=== PATIENT | male | born 1935 | race Caucasian/White ===

== ENCOUNTER 2021-10-06 09:23 | Inpatient (IN) | payer MEDICARE, SELFPAY ==
--- NOTE | ~2021-10-06 | XR_ITS ---
EXAMINATION: XR ANKLE, LEFT. XR FOOT, LEFT. CLINICAL INFORMATION: Pain after a fall COMPARISON: None TECHNIQUE: 3 views of the left ankle. 3 views of the left foot. FINDINGS: Bimalleolar soft tissue swelling. The ankle mortise is preserved. There is no acute fracture or dislocation of the ankle or foot. Dorsal soft tissue swelling of the foot. 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 Prominent heel spur. XR/XR ankle LT min 3V IMPRESSION: Soft tissue swelling. No acute fracture or dislocation. Heel spur.
--- NOTE | ~2021-10-06 | US_ITS ---
EXAMINATION: ULTRASOUND-GUIDED THORACENTESIS CLINICAL INFORMATION: Left pleural effusion. COMPARISON: Previous chest x-ray 10/06/2021. TECHNIQUE: Procedure and risks and benefits including bleeding, infection and pneumothorax were discussed with the patient and informed consent was obtained. The left posterior lateral chest was prepped and draped in the usual sterile fashion. The skin and soft tissues were anesthetized with 1% lidocaine plain. Using ultrasound guidance and a 4 Burkinan rapid centesis catheter, access to the left pleural effusion was obtained. 900 mL of clear yellow fluid was removed. Diagnostic specimen was sent as ordered by the requesting physician. FINDINGS: There is a moderate to large left pleural effusion. US/US thoracentesis IMPRESSION: Ultrasound-guided left thoracentesis.
--- NOTE | ~2021-10-06 | XR_ITS ---
EXAMINATION: XR CHEST CLINICAL INFORMATION: Weakness COMPARISON: None TECHNIQUE: Portable upright 10:35 AM view of the chest was obtained. FINDINGS: Limited portable baseline exam. Notable scoliosis convex left upper dorsal spine. Large pleural effusion left base. Element of CHF suspected. Heart size appears prominent. No other gross abnormality. XR/XR chest 1V IMPRESSION: CHF with a large left-sided pleural effusion. Recommend follow-up to ensure no underlying lesion. No previous.
--- NOTE | ~2021-10-06 | XR_ITS ---
EXAMINATION: XR CHEST CLINICAL INFORMATION: Post thoracentesis COMPARISON: Previous chest x-ray 10/06/2021 TECHNIQUE: Frontal view of the chest was obtained. FINDINGS: There is interval decrease in the left pleural effusion. There is a small remaining left pleural effusion post left thoracentesis. There is no pneumothorax. Cardiac and mediastinal contours are stable. There may be atelectasis left lower lobe adjacent to the effusion. The lungs are otherwise clear. There is a small right pleural effusion. There is scoliosis and degenerative changes of the spine. XR/XR chest 1V IMPRESSION: No pneumothorax post left thoracentesis.
--- NOTE | ~2021-10-06 | XR_ITS ---
EXAMINATION: XR ANKLE, LEFT. XR FOOT, LEFT. CLINICAL INFORMATION: Pain after a fall COMPARISON: None TECHNIQUE: 3 views of the left ankle. 3 views of the left foot. FINDINGS: Bimalleolar soft tissue swelling. The ankle mortise is preserved. There is no acute fracture or dislocation of the ankle or foot. Dorsal soft tissue swelling of the foot. 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 Prominent heel spur. XR/XR foot LT min 3V IMPRESSION: Soft tissue swelling. No acute fracture or dislocation. Heel spur.
--- NOTE | ~2021-10-06 | XR_ITS ---
EXAMINATION: XR CHEST CLINICAL INFORMATION: CHF evaluation. COMPARISON: 10/08/2021 chest. TECHNIQUE: Frontal view of the chest was obtained. FINDINGS: There is a persistent moderate-sized left pleural effusion without significant change. No pneumothorax. Mild pulmonary vascular prominence is seen. The heart and mediastinal structures are unremarkable. XR/XR chest 1V IMPRESSION: Persistent moderate left pleural effusion without significant change.
--- NOTE | ~2021-10-06 | CT_ITS ---
EXAMINATION: CT HEAD WITHOUT CONTRAST CLINICAL INFORMATION: Fall. Anticoagulated COMPARISON: None TECHNIQUE: Contiguous axial imaging was performed from the skull base to vertex without intravenous administration of contrast. This CT examination was performed using dose optimization techniques as appropriate, variously including the following: *Automated exposure control *Adjustment of mA and/or kV according to patient size (this includes techniques or standardized protocols for targeted exams where dose is matched to indication/reason for exam; i.e. extremities or head) *Use of iterative reconstruction technique DLP: mGy-cm FINDINGS: There is no evidence of acute intracranial hemorrhage or territorial infarction. No abnormal mass effect or midline shift is seen. Benitez to white matter differentiation is well preserved. No extra-axial fluid collections are identified. The ventricles are normal in size. There is no abnormal attenuation within the brain parenchyma. The osseous structures and soft tissues are normal. The mastoid air cells and visualized portions of the paranasal sinuses are notable for mild effusions particularly within right mastoid air cells. CT/CT head/brain wo con IMPRESSION: No acute intracranial pathology.
[2021-10-06 09:32] VITALS: BP 110/78; BP 129/62; PULSE 100; PULSE 92; RESP 16; O2SAT 96; O2SAT 98; BMI 25.4
--- NOTE | 2021-10-06 09:35 | ED_ITS ---
HPI - Altered Mental Status General Chief Complaint: Fall Stated Complaint: weakness, ams Time Seen by Provider: 10/06/21 09:25 Source: patient Mode of arrival: EMS Limitations: altered mental status (poor historian thinks it is 2005) History of Present Illness HPI narrative: 86 yo male from home states the thought someone was in his room last night because his daughter had people over so he slept in a chair. He then was confused as to where he was and tried to get up and slipped. He denies injury but notes his L heel has been bothering him for a while . He does not know the presidents name and he thinks it is 2005. He denies any other complaints. Notes his LE are swollen for 2 weeks - on lasix 20mg daily. Family is not here and I do not have a contact number for his daughter whom he lives with. complaint: confusion and other (fall) Onset (ago): unknown (slipped out of bed this AM unsure about baseline mentation - EMS notes increasing delusions) Timing confirmed by: family member Severity: moderate Consistency of symptoms: waxing and waning Context: other (fall out of bed) Associated symptoms: other (L heel pain) Related Data Home Medications Medication Instructions Recorded Confirmed acetaminophen 325 mg tablet 650 mg PO Q4H PRN 10/06/21 10/06/21 apixaban 2.5 mg tablet (Eliquis) 1 tab PO BID 10/06/21 10/06/21 ascorbic acid (vitamin C) 500 mg 500 mg PO DAILY 10/06/21 10/06/21 tablet cholecalciferol (vitamin D3) 25 25 mcg PO DAILY 10/06/21 10/06/21 mcg (1,000 unit) tablet (Vitamin D3) ferrous sulfate 325 mg (65 mg 325 mg PO DAILY 10/06/21 10/06/21 iron) tablet finasteride 5 mg tablet 5 mg PO BEDTIME 10/06/21 10/06/21 furosemide 20 mg tablet 20 mg PO DAILY 10/06/21 10/06/21 gabapentin 400 mg capsule 400 mg PO BID 10/06/21 10/06/21 lisinopril 20 mg tablet 20 mg PO DAILY 10/06/21 10/06/21 metoprolol tartrate 25 mg tablet 12.5 mg PO BID 10/06/21 10/06/21 multivitamin 1 tab PO DAILY 10/06/21 10/06/21 pravastatin 20 mg tablet 20 mg PO BEDTIME 10/06/21 10/06/21 zinc 50 mg tablet 50 mg PO DAILY 10/06/21 10/06/21 Allergies Allergy/AdvReac Type Severity Reaction Status Date / Time No Known Allergies Allergy Verified 10/06/21 09:32 Review of Systems Review of Systems: Constitutional : No Fever, No Chills ENT/Mouth : No Ear Pain, No Hoarseness, No sore throat Eyes: No Eye Pain, No Swelling, No Redness, No Foreign Body Cardiovascular : No Chest Pain, No SOB Respiratory : No Cough, No Dyspnea Gastrointestinal : No Nausea, No Vomiting, No Diarrhea, No abdominal Pain Genitourinary : No Dysuria, No Hematuria Musculoskeletal : positive joint pain, No Myalgias, No Joint Swelling Skin : No Skin lacerations, pos skin lesion Neuro : No Weakness, No Numbness, No Loss of Consciousness, No Dizziness, No Headache Psych : No Anxiety/Panic, No Depression, pos hallucinations - visual Heme/Lymph: no easy bruising, no Lymphadenopathy Endocrine : No Polyuria, No Polydipsia All other systems reviewed and are negative [facility] Past Medical History Source: old records reviewed (came with med list) Medical History Acute on chronic diastolic CHF (congestive heart failure) Afib Aortic stenosis BPH (benign prostatic hyperplasia) Cognitive impairment GIB (gastrointestinal bleeding) HLD (hyperlipidemia) HTN (hypertension) Peripheral edema Prostate cancer Right leg DVT Family History Family History Other No family history of coronary artery disease Social History Social History Patient Tobacco Use Status: Never used Tobacco Advance Directives: Yes Advance Directives Information Provided: No Advance Directives on File: No Physical Exam ED Vital Signs: Vital Signs - 24 hr 10/06/21 09:32 10/06/21 11:00 10/06/21 12:00 Temperature 97.7 F Pulse Rate 92 86 90 Respiratory Rate 16 19 14 Blood Pressure 110/78 103/62 110/76 Pulse Oximetry 96 95 94 BMI result Body Mass Index 25.4 Appearance: Alert. Oriented to self and place. No acute distress. I don't why I'm here, I thought someone was in my room last night but I was wrong. Eyes: Pupils equal, round and reactive to light. ENT: Pharynx normal. Neck: Normal inspection. Neck supple. CVS: irregular heart rate and rhythm. diminished heart sounds, Pulses normal. Respiratory: No respiratory distress. Breath sounds diminished, rales noted, poor airflow L side. no retractions. Abdomen: Soft and nontender. Skin: Skin warm and dry. Normal skin color. L heel shallow ulcer but no drainage and no surrounding erythema it is ttp Extremities: bilateral 3+ pitting edema to thighs Neuro: Oriented X 2. No motor deficit. No sensory deficit. Course Course Course Narrative: review of notes from [facility] - proteus from penile infection, dCHF, aortic stenosis, GIB - decreased eliquis, chronic ulcers of sacrum/heels and he was confused at that time as well May 2021 hemoglobin 8.3 on DC Looks like trend is in 8s call to daughter Mar 1034am [phone] this number is actually the patient's phone Cr 1.07 april 2021 BNP markedly high 9783 in past at [facility], trop 0.11 has no chest pain lactic acidosis likely elevated due to CKD and not infection or severe sepsis, has signs of volume overload - IVF held, being given IV lasix delusions started 5 days ago - patient refused hospital, confusion and memory issues are not new per family but have worsened Mar [phone] Joe [phone] possible UTI - has no symptoms will cover with ceftriaxone, has no WBC count afebrile, patient's lactic acidosis is due to CKD and not infection or severe sepsis. He is here with fluid overload and IVF are not indicated. MDM - Altered Mental Status MDM Narrative Medical decision making narrative: 86 yo male with hx of LE edema, afib on eliquis, BPH, L heel ulcer comes in after having delusions that someone was in his room so he slept in a chair. He became confused and tried to get up - slipped out and denies injury. I do not have much information in our EMR so history is off of his med list. He is alert to himself and place. At this time CT head for ICH, labs - tox labs, CXR/UA for infection. xrays of L heel/foot. I do not have a number for his daughter who he lives with and he doesn't know the number either. Reaching out to [facility] and [facility] to see if they have records on him. Dispo per results and findings. Lab Data Result diagrams: 10/06/21 10:06 10/06/21 10:06 Labs: Lab Results 10/06/21 10/06/21 10/06/21 Range/Units 10:04 10:06 10:06 WBC 5.7 (4.8-10.8) X10*3/uL RBC 3.21 L (4.60-5.80) X10*6/uL Hgb 9.6 L (14.0-18.0) g/dl Hct 30.9 L (42.0-52.0) % MCV 96.3 (80.0-98.0) fL MCH 29.9 (27.0-33.0) pg MCHC 31.1 (31.0-36.0) g/dl RDW 16.7 H (11.0-16.0) % Plt Count 175 (160-400) X10*3/uL MPV 9.7 (9.4-12.4) fL Immature Gran % (Auto) 0.4 (0.0-0.4) % Neut % (Auto) 79.9 H (45-73) % Lymph % (Auto) 9.9 L (20-40) % [place] % (Auto) 8.5 (2-11) % Eos % (Auto) 0.9 (0-4) % Baso % (Auto) 0.4 (0-2) % Lymph # (Auto) 0.6 L (1.2-4.9) X10*3/uL [place] # (Auto) 0.5 (0.1-1.2) X10*3/uL Eos # (Auto) 0.1 (0.0-0.4) X10*3/uL Baso # (Auto) 0.0 (0.0-0.2) X10*3/uL Abs Immat Gran (auto) 0.02 (0.00-0.03) X10*3/uL Absolute Neuts (auto) 4.5 (2.0-8.3) x10*3/uL Absolute Nucleated RBC 0.000 (0.0-0.012) X10*3/uL Nucleated RBC % (auto) 0.0 (0.0-0.2) /100WBC PT (9.9-13.0) SEC INR (0.9-1.1) APTT (24.1-38.0) SEC Sodium 144 (135-145) mmol/L Potassium 4.8 (3.3-5.1) mmol/L Chloride 107 (96-108) mmol/L Carbon Dioxide 25 (22-29) mmol/L Anion Gap 17 (12-20) BUN 33 H (9-16) mg/dL Creatinine 1.58 H (0.5-1.4) mg/dL Estim Creat Clear Calc 33.6 Estimated GFR 42 Random Glucose 84 (60-115) mg/dL Lactic Acid (0.5-2.0) mmol/L Calcium 9.3 (8.4-10.2) mg/dL Magnesium 2.5 (1.6-2.6) mg/dL Total Bilirubin 0.6 (0.0-1.0) mg/dL Direct Bilirubin 0.3 (0.0-0.5) mg/dL AST 35 (5-37) U/L ALT 28 (0-40) U/L Alkaline Phosphatase 70 (39-117) U/L Ammonia (13-55) umol/L Total Creatine Kinase 190 H (38-174) U/L Troponin I High Sens (<3.5-35.0) ng/L C-Reactive Protein 5.92 H (< or = 0.50) mg/dL B-Natriuretic Peptide (<100) pg/mL Total Protein 6.6 (6.5-8.0) g/dL Albumin 3.6 (3.5-5.0) g/dL Lipase 33 (8-78) U/L TSH (0.32-4.0) uIU/mL Urine Color Urine Appearance Urine pH (5.0-8.0) Ur Specific [place] (1.005-1.025) Urine Protein (NEG-TRACE) MG/DL Urine Glucose (UA) (NEG) MG/DL Urine Ketones (NEG) MG/DL Urine Blood (NEG) Urine Nitrite (NEG) Ur Leukocyte Esterase (NEG) Urine RBC (0) /HPF Urine WBC (0-4) /HPF Ur Squamous Epith Cells /LPF Urine Bacteria /LPF Urine Mucus /LPF Salicylates (15-30) mg/dL Acetaminophen (<30) mcg/mL COVID-19 (MARIANO) Negative (Negative) COVID-19 Clin Com See Note 10/06/21 10/06/21 10/06/21 Range/Units 10:06 10:06 10:06 WBC (4.8-10.8) X10*3/uL RBC (4.60-5.80) X10*6/uL Hgb (14.0-18.0) g/dl Hct (42.0-52.0) % MCV (80.0-98.0) fL MCH (27.0-33.0) pg MCHC (31.0-36.0) g/dl RDW (11.0-16.0) % Plt Count (160-400) X10*3/uL MPV (9.4-12.4) fL Immature Gran % (Auto) (0.0-0.4) % Neut % (Auto) (45-73) % Lymph % (Auto) (20-40) % [place] % (Auto) (2-11) % Eos % (Auto) (0-4) % Baso % (Auto) (0-2) % Lymph # (Auto) (1.2-4.9) X10*3/uL [place] # (Auto) (0.1-1.2) X10*3/uL Eos # (Auto) (0.0-0.4) X10*3/uL Baso # (Auto) (0.0-0.2) X10*3/uL Abs Immat Gran (auto) (0.00-0.03) X10*3/uL Absolute Neuts (auto) (2.0-8.3) x10*3/uL Absolute Nucleated RBC (0.0-0.012) X10*3/uL Nucleated RBC % (auto) (0.0-0.2) /100WBC PT 19.1 H (9.9-13.0) SEC INR 1.7 H (0.9-1.1) APTT 33.7 (24.1-38.0) SEC Sodium (135-145) mmol/L Potassium (3.3-5.1) mmol/L Chloride (96-108) mmol/L Carbon Dioxide (22-29) mmol/L Anion Gap (12-20) BUN (9-16) mg/dL Creatinine (0.5-1.4) mg/dL Estim Creat Clear Calc Estimated GFR Random Glucose (60-115) mg/dL Lactic Acid 2.1 H* (0.5-2.0) mmol/L Calcium (8.4-10.2) mg/dL Magnesium (1.6-2.6) mg/dL Total Bilirubin (0.0-1.0) mg/dL Direct Bilirubin (0.0-0.5) mg/dL AST (5-37) U/L ALT (0-40) U/L Alkaline Phosphatase (39-117) U/L Ammonia (13-55) umol/L Total Creatine Kinase (38-174) U/L Troponin I High Sens 85.5 H (<3.5-35.0) ng/L C-Reactive Protein (< or = 0.50) mg/dL B-Natriuretic Peptide 1788 H (<100) pg/mL Total Protein (6.5-8.0) g/dL Albumin (3.5-5.0) g/dL Lipase (8-78) U/L TSH (0.32-4.0) uIU/mL Urine Color Urine Appearance Urine pH (5.0-8.0) Ur Specific [place] (1.005-1.025) Urine Protein (NEG-TRACE) MG/DL Urine Glucose (UA) (NEG) MG/DL Urine Ketones (NEG) MG/DL Urine Blood (NEG) Urine Nitrite (NEG) Ur Leukocyte Esterase (NEG) Urine RBC (0) /HPF Urine WBC (0-4) /HPF Ur Squamous Epith Cells /LPF Urine Bacteria /LPF Urine Mucus /LPF Salicylates (15-30) mg/dL Acetaminophen (<30) mcg/mL COVID-19 (MARIANO) (Negative) COVID-19 Clin Com 10/06/21 10/06/21 10/06/21 Range/Units 10:06 10:06 12:18 WBC (4.8-10.8) X10*3/uL RBC (4.60-5.80) X10*6/uL Hgb (14.0-18.0) g/dl Hct (42.0-52.0) % MCV (80.0-98.0) fL MCH (27.0-33.0) pg MCHC (31.0-36.0) g/dl RDW (11.0-16.0) % Plt Count (160-400) X10*3/uL MPV (9.4-12.4) fL Immature Gran % (Auto) (0.0-0.4) % Neut % (Auto) (45-73) % Lymph % (Auto) (20-40) % [place] % (Auto) (2-11) % Eos % (Auto) (0-4) % Baso % (Auto) (0-2) % Lymph # (Auto) (1.2-4.9) X10*3/uL [place] # (Auto) (0.1-1.2) X10*3/uL Eos # (Auto) (0.0-0.4) X10*3/uL Baso # (Auto) (0.0-0.2) X10*3/uL Abs Immat Gran (auto) (0.00-0.03) X10*3/uL Absolute Neuts (auto) (2.0-8.3) x10*3/uL Absolute Nucleated RBC (0.0-0.012) X10*3/uL Nucleated RBC % (auto) (0.0-0.2) /100WBC PT (9.9-13.0) SEC INR (0.9-1.1) APTT (24.1-38.0) SEC Sodium (135-145) mmol/L Potassium (3.3-5.1) mmol/L Chloride (96-108) mmol/L Carbon Dioxide (22-29) mmol/L Anion Gap (12-20) BUN (9-16) mg/dL Creatinine (0.5-1.4) mg/dL Estim Creat Clear Calc Estimated GFR Random Glucose (60-115) mg/dL Lactic Acid (0.5-2.0) mmol/L Calcium (8.4-10.2) mg/dL Magnesium (1.6-2.6) mg/dL Total Bilirubin (0.0-1.0) mg/dL Direct Bilirubin (0.0-0.5) mg/dL AST (5-37) U/L ALT (0-40) U/L Alkaline Phosphatase (39-117) U/L Ammonia 21 (13-55) umol/L Total Creatine Kinase (38-174) U/L Troponin I High Sens (<3.5-35.0) ng/L C-Reactive Protein (< or = 0.50) mg/dL B-Natriuretic Peptide (<100) pg/mL Total Protein (6.5-8.0) g/dL Albumin (3.5-5.0) g/dL Lipase (8-78) U/L TSH 1.33 (0.32-4.0) uIU/mL Urine Color YELLOW Urine Appearance HAZY Urine pH 6.0 (5.0-8.0) Ur Specific [place] 1.010 (1.005-1.025) Urine Protein NEG (NEG-TRACE) MG/DL Urine Glucose (UA) NEG (NEG) MG/DL Urine Ketones NEG (NEG) MG/DL Urine Blood TRACE (NEG) Urine Nitrite NEG (NEG) Ur Leukocyte Esterase 1+ H (NEG) Urine RBC 5-9 H (0) /HPF Urine WBC 10-14 H (0-4) /HPF Ur Squamous Epith Cells 1+ /LPF Urine Bacteria TRACE /LPF Urine Mucus TRACE /LPF Salicylates < 5.0 L (15-30) mg/dL Acetaminophen < 1 (<30) mcg/mL COVID-19 (MARIANO) (Negative) COVID-19 Clin Com ECG Data ECG #1: Attestation: I personally reviewed and interpreted this ECG as follows: ECG interpretation date: 10/06/21 ECG interpretation time: 09:52 Interpretation: Rate: 91 Rhythm: NSR with PACs Dana: left Normal P waves. Normal JEAN. Normal QRS complex. ST T wave : nonspecific but no SIDDHARTH qTC: normal prior studies: no acute ischemia The study has been interpreted contemporaneously by me. Discharge Plan Discharge Clinical Impression: Confusion, Congestive heart failure, CKD (chronic kidney disease), Acidosis, lactic, Pleural effusion Heel ulcer Qualifiers: Laterality: left Non-pressure ulcer stage: unspecified non-pressure ulcer stage Qualified Code(s): L97.429 - Non-pressure chronic ulcer of left heel and midfoot with unspecified severity Patient Disposition: Admitted As Inpatient
[2021-10-06 10:20] LABS: MANUAL DIFF FLAG NO
[2021-10-06 10:21] LABS: Basophils Percent Auto 0.4 % (0-2); Eosinophils Absolute Auto 0.1 X10*3/uL (0.0-0.4); Eosinophils Percent Auto 0.9 % (0-4); Hematocrit 30.9 % (42.0-52.0); Hemoglobin 9.6 g/dl (14.0-18.0); Imm Gran Abs Auto 0.02 X10*3/uL (0.00-0.03); Imm Gran Pct Auto 0.4 % (0.0-0.4); Lymphocytes Absolute Auto 0.6 X10*3/uL (1.2-4.9); Lymphocytes Percent Auto 9.9 % (20-40); Mean Corpuscular HGB Conc 31.1 g/dl (31.0-36.0); Mean Corpuscular Hemoglobin 29.9 pg (27.0-33.0); Mean Corpuscular Volume 96.3 fL (80.0-98.0); Mean Platelet Volume 9.7 fL (9.4-12.4); Monocytes Absolute Auto 0.5 X10*3/uL (0.1-1.2); Monocytes Percent Auto 8.5 % (2-11); Neutrophils Absolute Auto 4.5 x10*3/uL (2.0-8.3); Neutrophils Percent Auto 79.9 % (45-73); Platelet Count 175 X10*3/uL (160-400); Red Blood Count 3.21 X10*6/uL (4.60-5.80); Red Cell Distribution Width 16.7 % (11.0-16.0); White Blood Count 5.7 X10*3/uL (4.8-10.8)
[2021-10-06 10:26] LABS: INTERNATIONAL NORM RATIO 1.7 (0.9-1.1); Prothrombin Time 19.1 SEC (9.9-13.0)
[2021-10-06 10:27] LABS: Ammonia 21 umol/L (13-55)
[2021-10-06 10:29] LABS: Partial Thromboplastin Time 33.7 SEC (24.1-38.0)
[2021-10-06 10:32] LABS: COVID-19 Test Negative (Negative); IDNOW Serial# 16C4AD1C
[2021-10-06 10:37] LABS: Alanine Aminotransferase 28 U/L (0-40); Albumin Level 3.6 g/dL (3.5-5.0); Alkaline Phosphatase 70 U/L (39-117); Anion Gap 17 (12-20); Aspartate Amino Transferase 35 U/L (5-37); Bilirubin Direct 0.3 mg/dL (0.0-0.5); Bilirubin Total 0.6 mg/dL (0.0-1.0); Blood Urea Nitrogen 33 mg/dL (9-16); C Reactive Protein 5.92 mg/dL (< or = 0.50); Calcium 9.3 mg/dL (8.4-10.2); Carbon Dioxide 25 mmol/L (22-29); Chloride 107 mmol/L (96-108); Creatinine Clr Calc Pharmacy 33.6; Estimated Glomerular Filt Rate 42; Glucose Random 84 mg/dL (60-115); Lipase 33 U/L (8-78); Magnesium 2.5 mg/dL (1.6-2.6); Potassium 4.8 mmol/L (3.3-5.1); Sodium 144 mmol/L (135-145); Total Protein 6.6 g/dL (6.5-8.0)
[2021-10-06 10:38] LABS: Lactic Acid 2.1 mmol/L (0.5-2.0)
[2021-10-06 10:40] LABS: Acetaminophen LAB < 1 mcg/mL (<30); Salicylate < 5.0 mg/dL (15-30)
[2021-10-06 10:41] LABS: B Type Natriuretic Peptide 1788 pg/mL (<100); Troponin-I High Sensitivity 85.5 ng/L (<3.5-35.0)
[2021-10-06 10:56] LABS: TSH reflex Free T4 1.33 uIU/mL (0.32-4.0)
[2021-10-06 11:00] VITALS: BP 103/62; PULSE 86; RESP 19; TEMP 36.5; O2SAT 95
[2021-10-06] MEDS: Furosemide 40 MG/4 ML VIAL IVPUSH ×2 (11:00→17:48)
--- NOTE | 2021-10-06 11:28 | PC.NURSE ---
Call from patient's who is at [facility], received phone number for daughter who patient lives with. Mar [phone]
--- NOTE | 2021-10-06 11:55 | PHA.MEDREC ---
MED REC COMPLETE, NO ISSUES Pharmacy Consult ? Medication Reconciliation Pharmacy has completed the medication reconciliation.
[2021-10-06 12:00] VITALS: BP 110/76; PULSE 90; RESP 14; O2SAT 94
[2021-10-06 12:18] LABS: Reflex Lactate? Lactic Acid Added
[2021-10-06 12:24] LABS: Appearance Urine HAZY; Color Urine YELLOW; Glucose Urine UA NEG (NEG); Leukocyte Esterase Urine 1+ (NEG); Nitrite Urine NEG (NEG); UACC Culture Trigger YES; Urine Blood TRACE (NEG); Urine Ketones NEG (NEG); Urine Protein NEG (NEG-TRACE)
[2021-10-06 12:31] LABS: Bacteria Urine TRACE /LPF; Mucus Urine TRACE /LPF; Squamous Epithelial Cell Urine 1+ /LPF
--- NOTE | 2021-10-06 12:37 | P.HPHOSP_ITS ---
History of Present Illness Date of Service: 10/06/21 Chief Complaint: fall 86M presented with fall. patient lives with duaghter and son in law, ambulates with walker, has dementia, but is fairly oriented with some short term memory loss. apparently, patient had a visual hallucination of someone in his bed, so he slept in his chair, in morning he tried to get up and fell down, so they brought him to hospital. patient states he was not wearing his glasses. he denies sob, chest pain, fever, chills, injury. he reports now that he feels back to baseline, but does note worsening bilateral lower extremity swelling. patient has known severe , but he and is family not aware. in ED elevated BNP, Cxr with left effusion. Review of Systems Review of Systems: Constitutional: Denies fever, denies Chills Eyes: denies blurry vision ENT: denies sore throat CVS: denies chest pain Respiratory: Denies dyspnea GI: no abdominal pain : denies dysuria MSK: denies neck pain Skin: denies rash Neuro: denies specific motor weakness Psych: denies suicidal ideation Endocrine: denies heat/cold intolerance Hematologic: denies easy bleeding Allergy: denies hives PMF Medical History Acute on chronic diastolic CHF (congestive heart failure) Afib Aortic stenosis BPH (benign prostatic hyperplasia) Cognitive impairment GIB (gastrointestinal bleeding) HLD (hyperlipidemia) HTN (hypertension) Peripheral edema Prostate cancer Right leg DVT Family History Other No family history of coronary artery disease Social History Patient Tobacco Use Status: Never used Tobacco Advance Directives: Yes Advance Directives Information Provided: No Advance Directives on File: No Meds Allergies Allergy/AdvReac Type Severity Reaction Status Date / Time No Known Allergies Allergy Verified 10/06/21 09:32 Active Medications: Current Medications Acetaminophen (Acetaminophen 325 Mg Tablet) 650 mg PO Q6H PRN PRN Reason: Pain, Mild (Pain Scale 1-3) Ascorbic Acid (Ascorbic Acid 500 Mg Tablet) 500 mg PO DAILY [facility] Ferrous Sulfate (Ferrous Sulfate 324 Mg Tablet.) 324 mg PO DAILY [facility] Finasteride (Finasteride 5 Mg Tablet) 5 mg PO BEDTIME [facility] Furosemide (Furosemide 40 Mg/4 Ml Vial) 40 mg IVPUSH BID@0900,1800 [facility]; Protocol Gabapentin (Gabapentin 400 Mg Capsule) 400 mg PO BID [facility] Heparin Sodium (Porcine) (Heparin Sodium,Porcine 5,000 Unit/Ml Vial) 5,000 unit SUBCUT Q12H [facility] Lisinopril (Lisinopril 20 Mg Tablet) 20 mg PO DAILY [facility]; Protocol Metoprolol Tartrate (Metoprolol Tartrate 12.5 Mg Halftab) 12.5 mg PO BID [facility]; Protocol Multivitamins/Vitamin C (Multivitamin Tablet) 1 tab PO DAILY [facility] Pharmacy Consult (Consult Rx Perform Med Rec) 1 each MISCELLANE ONCE PRN PRN Reason: Consult order Pravastatin Sodium (Pravastatin Sodium 20 Mg Tablet) 20 mg PO BEDTIME [facility] Sodium Chloride (0.9 % Sodium Chloride Flush 3 Ml Syringe) 3 ml IVFLUSH QSHIFT [facility] Vitamin D (Cholecalciferol (Vitamin D3) 25 Mcg Tablet) 25 mcg PO DAILY [facility] Zinc Sulfate (Zinc Sulfate 220 Mg Capsule) 220 mg PO DAILY [facility] Home Medications Medication Instructions Recorded Confirmed Last Taken Type acetaminophen 325 mg tablet 650 mg PO Q4H PRN 10/06/21 10/06/21 Unknown History apixaban 2.5 mg tablet (Eliquis) 1 tab PO BID 10/06/21 10/06/21 10/06/21 History ascorbic acid (vitamin C) 500 mg 500 mg PO DAILY 10/06/21 10/06/21 10/06/21 History tablet cholecalciferol (vitamin D3) 25 25 mcg PO DAILY 10/06/21 10/06/21 10/06/21 History mcg (1,000 unit) tablet (Vitamin D3) ferrous sulfate 325 mg (65 mg 325 mg PO DAILY 10/06/21 10/06/21 10/06/21 History iron) tablet finasteride 5 mg tablet 5 mg PO BEDTIME 10/06/21 10/06/21 10/05/21 History furosemide 20 mg tablet 20 mg PO DAILY 10/06/21 10/06/21 10/06/21 History gabapentin 400 mg capsule 400 mg PO BID 10/06/21 10/06/21 10/06/21 History lisinopril 20 mg tablet 20 mg PO DAILY 10/06/21 10/06/21 10/06/21 History metoprolol tartrate 25 mg tablet 12.5 mg PO BID 10/06/21 10/06/21 10/06/21 History multivitamin 1 tab PO DAILY 10/06/21 10/06/21 10/06/21 History pravastatin 20 mg tablet 20 mg PO BEDTIME 10/06/21 10/06/21 10/05/21 History zinc 50 mg tablet 50 mg PO DAILY 10/06/21 10/06/21 10/06/21 History Physical Exam Vital Signs and Narrative: Vital Signs: Last Vital Signs Temp 97.7 F 10/06/21 11:00 Pulse 90 10/06/21 12:00 Resp 14 10/06/21 12:00 BP 110/76 10/06/21 12:00 Pulse Ox 94 10/06/21 12:00 BMI result Body Mass Index 25.4 General: no acute distress HEENT: atraumatic Neck: normal to visual inspection CVS: S1, S2, RRR, murmur Resp: dminshed left side Chest: non tender GI: soft, non tender, non distended : no CVA tenderness Skin: no rashes Extremities: 3+ edema Neuro: Oriented X3 (did not know year initially, but was able to repeat correct year once told), grossly intact Psych: cooperative Results Labs CBC and Chem 7: 10/06/21 10:06 10/06/21 10:06 Labs: Laboratory Results - last 24 hr 10/06/21 10/06/21 10/06/21 10:04 10:06 10:06 MCV 96.3 MCH 29.9 MCHC 31.1 RDW 16.7 H Plt Count 175 MPV 9.7 Immature Gran % (Auto) 0.4 Neut % (Auto) 79.9 H Lymph % (Auto) 9.9 L [place] % (Auto) 8.5 Eos % (Auto) 0.9 Baso % (Auto) 0.4 Lymph # (Auto) 0.6 L [place] # (Auto) 0.5 Eos # (Auto) 0.1 Baso # (Auto) 0.0 Abs Immat Gran (auto) 0.02 Absolute Neuts (auto) 4.5 Absolute Nucleated RBC 0.000 Nucleated RBC % (auto) 0.0 PT INR APTT Anion Gap 17 Estim Creat Clear Calc 33.6 Estimated GFR 42 Random Glucose 84 Lactic Acid Calcium 9.3 Magnesium 2.5 Total Bilirubin 0.6 Direct Bilirubin 0.3 AST 35 ALT 28 Alkaline Phosphatase 70 Ammonia Total Creatine Kinase 190 H Troponin I High Sens C-Reactive Protein 5.92 H B-Natriuretic Peptide Total Protein 6.6 Albumin 3.6 Lipase 33 TSH Urine Color Urine Appearance Urine pH Ur Specific [place] Urine Protein Urine Glucose (UA) Urine Ketones Urine Blood Urine Nitrite Ur Leukocyte Esterase Urine RBC Urine WBC Ur Squamous Epith Cells Urine Bacteria Urine Mucus Salicylates Acetaminophen COVID-19 (MARIANO) Negative COVID-19 Clin Com See Note 10/06/21 10/06/21 10/06/21 10:06 10:06 10:06 MCV MCH MCHC RDW Plt Count MPV Immature Gran % (Auto) Neut % (Auto) Lymph % (Auto) [place] % (Auto) Eos % (Auto) Baso % (Auto) Lymph # (Auto) [place] # (Auto) Eos # (Auto) Baso # (Auto) Abs Immat Gran (auto) Absolute Neuts (auto) Absolute Nucleated RBC Nucleated RBC % (auto) PT 19.1 H INR 1.7 H APTT 33.7 Anion Gap Estim Creat Clear Calc Estimated GFR Random Glucose Lactic Acid 2.1 H* Calcium Magnesium Total Bilirubin Direct Bilirubin AST ALT Alkaline Phosphatase Ammonia Total Creatine Kinase Troponin I High Sens 85.5 H C-Reactive Protein B-Natriuretic Peptide 1788 H Total Protein Albumin Lipase TSH Urine Color Urine Appearance Urine pH Ur Specific [place] Urine Protein Urine Glucose (UA) Urine Ketones Urine Blood Urine Nitrite Ur Leukocyte Esterase Urine RBC Urine WBC Ur Squamous Epith Cells Urine Bacteria Urine Mucus Salicylates Acetaminophen COVID-19 (MARIANO) COVID-19 Clin Com 10/06/21 10/06/21 10/06/21 10:06 10:06 12:18 MCV MCH MCHC RDW Plt Count MPV Immature Gran % (Auto) Neut % (Auto) Lymph % (Auto) [place] % (Auto) Eos % (Auto) Baso % (Auto) Lymph # (Auto) [place] # (Auto) Eos # (Auto) Baso # (Auto) Abs Immat Gran (auto) Absolute Neuts (auto) Absolute Nucleated RBC Nucleated RBC % (auto) PT INR APTT Anion Gap Estim Creat Clear Calc Estimated GFR Random Glucose Lactic Acid Calcium Magnesium Total Bilirubin Direct Bilirubin AST ALT Alkaline Phosphatase Ammonia 21 Total Creatine Kinase Troponin I High Sens C-Reactive Protein B-Natriuretic Peptide Total Protein Albumin Lipase TSH 1.33 Urine Color YELLOW Urine Appearance HAZY Urine pH 6.0 Ur Specific [place] 1.010 Urine Protein NEG Urine Glucose (UA) NEG Urine Ketones NEG Urine Blood TRACE Urine Nitrite NEG Ur Leukocyte Esterase 1+ H Urine RBC 5-9 H Urine WBC 10-14 H Ur Squamous Epith Cells 1+ Urine Bacteria TRACE Urine Mucus TRACE Salicylates < 5.0 L Acetaminophen < 1 COVID-19 (MARIANO) COVID-19 Clin Com Imaging Radiologist's Impressions: Impressions Ankle X-Ray 10/06/21 10:42 IMPRESSION: Soft tissue swelling. No acute fracture or dislocation. Heel spur. Chest X-Ray 10/06/21 10:42 IMPRESSION: CHF with a large left-sided pleural effusion. Recommend follow-up to ensure no underlying lesion. No previous. Foot X-Ray 10/06/21 10:42 IMPRESSION: Soft tissue swelling. No acute fracture or dislocation. Heel spur. Head CT 10/06/21 10:55 IMPRESSION: No acute intracranial pathology. Assessment and Plan (1) Acute on chronic diastolic CHF (congestive heart failure): Status: Acute Plan 86M presented with fall, hallucinations, found to have chf, positive UA fall likely mechanical related to edema PT eval hallucinations 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) with hallucinations due to decreased sensorium (not wearing glasses) use glasses when awake avoid sedatives acute on chronic diastolic chf with severe iv lasix monitor lytes cardio eval echo large left pleuarl effusion likely due to chf plan for thoracentesis 10/08/21 (hold eliquis) positive UA possible uti, will treat with rocpehin, follow up cultures paroxysmal afib eliquis on hold for thoracentesis lopressor history of right leg DVT hodling eliquis CKD III stable HTN lisinopril BPH proscar full code patient with chf requiring iv diuresis, high risk due to age, frailty, expect atleast 2 midnights in hospital Quality Stroke Does the patient have a stroke diagnosis?: No VTE Prior VTE?: Yes VTE Risk Level:: Medical - moderate - high VTE Device Contraindication: Treatment Not Indicated VTE Drug Contraindication: N/A - Med Ordered
[2021-10-06 13:02] LABS: ~Lactic Acid-LAB USE ONLY 1.1 mmol/L (0.5-2.0)
[2021-10-06] MEDS: cefTRIAXone sodium 1 GM in 0.9 % Sodium Chloride 50 ML IV (13:58)
--- NOTE | 2021-10-06 15:02 | MHC.CM.PN ---
Met with patient in regards to discharge planning. Patient currently lives with his and daughter, ambulates with a walker and is active with [facility]. Patient's is currently at short term rehab at [facility]. PCP verified. Copy of HCP requested from [facility]. Patient received 3 Covid vaccines but doesn't remember the brand or dates. IMM explained and signed. Anticipate patient will return home with [facility] via [employer]. Continue to monitor for d/c needs.
[2021-10-06 17:49] VITALS: BP 98/62; PULSE 88; RESP 21; TEMP 36.4; O2SAT 97
[2021-10-06] MEDS: Heparin Sodium,Porcine 5,000 UNIT/ML VIAL 5000 UNIT SUBCUT (20:02)
[2021-10-06] MEDS: Finasteride 5 MG TABLET PO (20:04)
[2021-10-06] MEDS: 0.9 % Sodium Chloride Flush 3 ML SYRINGE IVFLUSH (20:05)
[2021-10-06] MEDS: Pravastatin Sodium 20 MG TABLET PO (20:05)
[2021-10-06] MEDS: Gabapentin 400 MG CAPSULE PO (20:05)
[2021-10-06 23:34] VITALS: BP 112/80; PULSE 90; RESP 18; TEMP 36.5; O2SAT 96
[2021-10-07] VITALS (7 sets, daily range): BP systolic 81–106; BP diastolic 50–67; PULSE 78–98; RESP 17–19; TEMP 36.3–37; O2SAT 95–96
--- NOTE | 2021-10-07 02:22 | PC.NURSE ---
pt noted to have a 5 beat of vtach, pt assessed and asymptomatic. Will continue to monitor.
[2021-10-07 07:27] LABS: Hematocrit 27.9 % (42.0-52.0); Hemoglobin 8.8 g/dl (14.0-18.0); Mean Corpuscular HGB Conc 31.5 g/dl (31.0-36.0); Mean Corpuscular Hemoglobin 29.6 pg (27.0-33.0); Mean Corpuscular Volume 93.9 fL (80.0-98.0); Mean Platelet Volume 10.2 fL (9.4-12.4); Platelet Count 158 X10*3/uL (160-400); Red Blood Count 2.97 X10*6/uL (4.60-5.80); Red Cell Distribution Width 16.8 % (11.0-16.0); White Blood Count 5.1 X10*3/uL (4.8-10.8)
[2021-10-07 07:45] LABS: Anion Gap 12 (12-20); Blood Urea Nitrogen 32 mg/dL (9-16); Calcium 8.9 mg/dL (8.4-10.2); Carbon Dioxide 27 mmol/L (22-29); Chloride 107 mmol/L (96-108); Creatinine Clr Calc Pharmacy 36.4; Estimated Glomerular Filt Rate 46; Glucose Fasting 90 mg/dL (60-99); Magnesium 2.3 mg/dL (1.6-2.6); Sodium 142 mmol/L (135-145)
[2021-10-07] MEDS: Heparin Sodium,Porcine 5,000 UNIT/ML VIAL 5000 UNIT SUBCUT (10:13)
--- NOTE | 2021-10-07 10:15 | PM.CNCAR ---
History of Present Illness History of Present Illness Date of Service: 10/07/21 Chief complaint: CHF Narrative: This is a cardiology consultation regarding heart failure and aortic stenosis. Apparently patient carries a diagnosis of severe aortic stenosis. This is based on the [facility] echocardiogram from the past. However, when I questioned the patient he does not have any printed circuit layout taper or in fact any cardiac follow-up whatsoever. Hence somewhat confusing. To me he seems completely oriented at this time. In fact he stated that he was having hallucinations at home. Current admission is because of fall. From the cardiac standpoint, no dizziness or presyncopal type symptoms. Also no chest pain or shortness of breath or in fact any cardiac symptoms whatsoever. He does have longstanding leg edema. We have been asked to assess his cardiac status because of the aortic stenosis. Review of Systems Review of Systems: Yes all other systems are reviewed and are negative Constitutional: Constitutional: Reports as per HPI Eyes: Eyes: Reports as per HPI ENT: Reports as per HPI Cardiovascular: Cardiovascular: Reports as per HPI, Denies acrocyanosis, Denies cool extremities, Denies chest pain, Reports leg edema, Denies lightheadedness, Denies palpitations and Denies dyspnea Respiratory: Respiratory: Reports as per HPI, Reports no additional respiratory complaints and Denies dyspnea Gastrointestinal: Gastrointestinal: Reports as per HPI and Reports no additional gastrointestinal complaints Genitourinary: Genitourinary: Reports no additional male genitourinary complaints and Reports as per HPI Musculoskeletal: Musculoskeletal: Reports no additional musculoskeletal complaints and Reports as per HPI Integumentary/Breasts: Skin/Breast: Reports system reviewed and no additional complaints, except as docu Neurologic: Reports system reviewed and no additional complaints, except as documented and Reports as per HPI Psychiatric: Psychiatric: Reports no additional psychiatric complaints and Reports as per HPI Comments: confusion, hallucination Endocrine: Endocrine: Reports no additional endocrine complaints, Reports as per HPI and Denies palpitations Hematologic/Lymphatic: Hematologic/Lymphatic: Reports no additional hematologic/lymphatic complaints and Reports as per HPI Allergic/Immunologic: Allergic/Immunologic: Reports no additional allergic/immunologic complaints and Reports as per HPI [facility] Past Medical History Medical History Acute on chronic diastolic CHF (congestive heart failure) Afib Aortic stenosis BPH (benign prostatic hyperplasia) Cognitive impairment GIB (gastrointestinal bleeding) HLD (hyperlipidemia) HTN (hypertension) Peripheral edema Prostate cancer Right leg DVT Family History Family History Other No family history of coronary artery disease Social History Social History Household Members: Spouse and Children Housing: House Do you presently have visiting nurse or other home services: Yes ( woman comes MWF ) Patient Tobacco Use Status: Former Tobacco user Quit Date: 40 years ago Tobacco use type: Pipe Second Hand Smoke Exposure: No service: No Current occupational status: retired [employer] Allergies Allergy/AdvReac Type Severity Reaction Status Date / Time No Known Allergies Allergy Verified 10/06/21 09:32 Active Medications: Current Medications Acetaminophen (Acetaminophen 325 Mg Tablet) 650 mg PO Q6H PRN PRN Reason: Pain, Mild (Pain Scale 1-3) Ascorbic Acid (Ascorbic Acid 500 Mg Tablet) 500 mg PO DAILY [facility] Ferrous Sulfate (Ferrous Sulfate 324 Mg Tablet.) 324 mg PO DAILY [facility] Finasteride (Finasteride 5 Mg Tablet) 5 mg PO BEDTIME [facility] Last Admin: 10/06/21 20:04 Dose: 5 mg Documented by: Furosemide (Furosemide 40 Mg/4 Ml Vial) 40 mg IVPUSH BID@0900,1800 [facility]; Protocol Last Admin: 10/06/21 17:48 Dose: 40 mg Documented by: Gabapentin (Gabapentin 400 Mg Capsule) 400 mg PO BID [facility] Last Admin: 10/06/21 20:05 Dose: 400 mg Documented by: Heparin Sodium (Porcine) (Heparin Sodium,Porcine 5,000 Unit/Ml Vial) 5,000 unit SUBCUT Q12H [facility] Last Admin: 10/07/21 10:13 Dose: 5,000 unit Documented by: Ceftriaxone Sodium 1 gm/ (Sodium Chloride) 50 mls @ 100 mls/hr IV Q24H [facility] Lisinopril (Lisinopril 20 Mg Tablet) 20 mg PO DAILY [facility]; Protocol Metoprolol Tartrate (Metoprolol Tartrate 12.5 Mg Halftab) 12.5 mg PO BID [facility]; Protocol Last Admin: 10/06/21 20:05 Dose: Not Given Documented by: Multivitamins/Vitamin C (Multivitamin Tablet) 1 tab PO DAILY [facility] Pharmacy Consult (Consult Rx Perform Med Rec) 1 each MISCELLANE ONCE PRN PRN Reason: Consult order Pravastatin Sodium (Pravastatin Sodium 20 Mg Tablet) 20 mg PO BEDTIME [facility] Last Admin: 10/06/21 20:05 Dose: 20 mg Documented by: Sodium Chloride (0.9 % Sodium Chloride Flush 3 Ml Syringe) 3 ml IVFLUSH QSHIFT [facility] Last Admin: 10/06/21 20:05 Dose: 3 ml Documented by: Vitamin D (Cholecalciferol (Vitamin D3) 25 Mcg Tablet) 25 mcg PO DAILY [facility] Zinc Sulfate (Zinc Sulfate 220 Mg Capsule) 220 mg PO DAILY [facility] Home Medications Medication Instructions Recorded Confirmed Last Taken Type acetaminophen 325 mg tablet 650 mg PO Q4H PRN 10/06/21 10/06/21 Unknown History apixaban 2.5 mg tablet (Eliquis) 1 tab PO BID 10/06/21 10/06/21 10/06/21 History ascorbic acid (vitamin C) 500 mg 500 mg PO DAILY 10/06/21 10/06/21 10/06/21 History tablet cholecalciferol (vitamin D3) 25 25 mcg PO DAILY 10/06/21 10/06/21 10/06/21 History mcg (1,000 unit) tablet (Vitamin D3) ferrous sulfate 325 mg (65 mg 325 mg PO DAILY 10/06/21 10/06/21 10/06/21 History iron) tablet finasteride 5 mg tablet 5 mg PO BEDTIME 10/06/21 10/06/21 10/05/21 History furosemide 20 mg tablet 20 mg PO DAILY 10/06/21 10/06/21 10/06/21 History gabapentin 400 mg capsule 400 mg PO BID 10/06/21 10/06/21 10/06/21 History lisinopril 20 mg tablet 20 mg PO DAILY 10/06/21 10/06/21 10/06/21 History metoprolol tartrate 25 mg tablet 12.5 mg PO BID 10/06/21 10/06/21 10/06/21 History multivitamin 1 tab PO DAILY 10/06/21 10/06/21 10/06/21 History pravastatin 20 mg tablet 20 mg PO BEDTIME 10/06/21 10/06/21 10/05/21 History zinc 50 mg tablet 50 mg PO DAILY 10/06/21 10/06/21 10/06/21 History Physical Exam Vital Signs: Vital Signs: Last Vital Signs Temp 98.4 F 10/07/21 07:42 Pulse 98 10/07/21 10:13 Resp 17 10/07/21 07:42 BP 98/59 L 10/07/21 10:13 Pulse Ox 95 10/07/21 07:42 BMI result Body Mass Index 25.4 Const: General: comfortable HEENT: Other: Unremarkable Head: Yes normal to inspection Neck: Neck: Yes normal visual inspection Chest: Chest palpation & inspection: normal inspection of the chest Resp: Auscultation: clear to auscultation bilaterally Cardio: Palpation: normal PMI Heart sounds: S1 normal heart sound present, S2 normal heart sound present, no gallops, Murmur heart sound present systolic early, II/ and at the right sternal border and no rubs GI: Palpation (GI): Soft to palpation Back/Spine/Pelvis: Other: unremarkable Skin: General skin exam: no rashes or lesions noted Neuro: Cognition (Neuro): normal cognition Extrem: General: Yes normal to inspection and Yes pedal edema (2+; left leg has a bandage) Psych: Other: Appears oriented x 3 Mental Status: mental status grossly normal Objective Labs and Meds Result diagrams: 10/07/21 06:20 10/07/21 06:20 Lab results: Laboratory Results - last 24 hr 10/06/21 10/06/21 10/06/21 10:04 10:06 10:06 WBC 5.7 RBC 3.21 L Hgb 9.6 L Hct 30.9 L MCV 96.3 MCH 29.9 MCHC 31.1 RDW 16.7 H Plt Count 175 MPV 9.7 Immature Gran % (Auto) 0.4 Neut % (Auto) 79.9 H Lymph % (Auto) 9.9 L [place] % (Auto) 8.5 Eos % (Auto) 0.9 Baso % (Auto) 0.4 Lymph # (Auto) 0.6 L [place] # (Auto) 0.5 Eos # (Auto) 0.1 Baso # (Auto) 0.0 Abs Immat Gran (auto) 0.02 Absolute Neuts (auto) 4.5 Absolute Nucleated RBC 0.000 Nucleated RBC % (auto) 0.0 PT INR APTT Sodium 144 Potassium 4.8 Chloride 107 Carbon Dioxide 25 Anion Gap 17 BUN 33 H Creatinine 1.58 H Estim Creat Clear Calc 33.6 Estimated GFR 42 Random Glucose 84 Fasting Glucose Lactic Acid Lactic Acid F/U @ 2Hr Calcium 9.3 Magnesium 2.5 Total Bilirubin 0.6 Direct Bilirubin 0.3 AST 35 ALT 28 Alkaline Phosphatase 70 Ammonia Total Creatine Kinase 190 H Troponin I High Sens C-Reactive Protein 5.92 H B-Natriuretic Peptide Total Protein 6.6 Albumin 3.6 Lipase 33 TSH Urine Color Urine Appearance Urine pH Ur Specific [place] Urine Protein Urine Glucose (UA) Urine Ketones Urine Blood Urine Nitrite Ur Leukocyte Esterase Urine RBC Urine WBC Ur Squamous Epith Cells Urine Bacteria Urine Mucus Salicylates Acetaminophen COVID-19 (MARIANO) Negative COVID-19 Clin Com See Note 10/06/21 10/06/21 10/06/21 10:06 10:06 10:06 WBC RBC Hgb Hct MCV MCH MCHC RDW Plt Count MPV Immature Gran % (Auto) Neut % (Auto) Lymph % (Auto) [place] % (Auto) Eos % (Auto) Baso % (Auto) Lymph # (Auto) [place] # (Auto) Eos # (Auto) Baso # (Auto) Abs Immat Gran (auto) Absolute Neuts (auto) Absolute Nucleated RBC Nucleated RBC % (auto) PT 19.1 H INR 1.7 H APTT 33.7 Sodium Potassium Chloride Carbon Dioxide Anion Gap BUN Creatinine Estim Creat Clear Calc Estimated GFR Random Glucose Fasting Glucose Lactic Acid 2.1 H* Lactic Acid F/U @ 2Hr Calcium Magnesium Total Bilirubin Direct Bilirubin AST ALT Alkaline Phosphatase Ammonia Total Creatine Kinase Troponin I High Sens 85.5 H C-Reactive Protein B-Natriuretic Peptide 1788 H Total Protein Albumin Lipase TSH Urine Color Urine Appearance Urine pH Ur Specific [place] Urine Protein Urine Glucose (UA) Urine Ketones Urine Blood Urine Nitrite Ur Leukocyte Esterase Urine RBC Urine WBC Ur Squamous Epith Cells Urine Bacteria Urine Mucus Salicylates Acetaminophen COVID-19 (MARIANO) COVID-19 Clin Com 10/06/21 10/06/21 10/06/21 10:06 10:06 12:18 WBC RBC Hgb Hct MCV MCH MCHC RDW Plt Count MPV Immature Gran % (Auto) Neut % (Auto) Lymph % (Auto) [place] % (Auto) Eos % (Auto) Baso % (Auto) Lymph # (Auto) [place] # (Auto) Eos # (Auto) Baso # (Auto) Abs Immat Gran (auto) Absolute Neuts (auto) Absolute Nucleated RBC Nucleated RBC % (auto) PT INR APTT Sodium Potassium Chloride Carbon Dioxide Anion Gap BUN Creatinine Estim Creat Clear Calc Estimated GFR Random Glucose Fasting Glucose Lactic Acid Lactic Acid F/U @ 2Hr Calcium Magnesium Total Bilirubin Direct Bilirubin AST ALT Alkaline Phosphatase Ammonia 21 Total Creatine Kinase Troponin I High Sens C-Reactive Protein B-Natriuretic Peptide Total Protein Albumin Lipase TSH 1.33 Urine Color YELLOW Urine Appearance HAZY Urine pH 6.0 Ur Specific [place] 1.010 Urine Protein NEG Urine Glucose (UA) NEG Urine Ketones NEG Urine Blood TRACE Urine Nitrite NEG Ur Leukocyte Esterase 1+ H Urine RBC 5-9 H Urine WBC 10-14 H Ur Squamous Epith Cells 1+ Urine Bacteria TRACE Urine Mucus TRACE Salicylates < 5.0 L Acetaminophen < 1 COVID-19 (MARIANO) COVID-19 [employer] 10/06/21 10/07/21 10/07/21 12:48 06:20 06:20 WBC 5.1 RBC 2.97 L Hgb 8.8 L Hct 27.9 L MCV 93.9 MCH 29.6 MCHC 31.5 RDW 16.8 H Plt Count 158 L MPV 10.2 Immature Gran % (Auto) Neut % (Auto) Lymph % (Auto) [place] % (Auto) Eos % (Auto) Baso % (Auto) Lymph # (Auto) [place] # (Auto) Eos # (Auto) Baso # (Auto) Abs Immat Gran (auto) Absolute Neuts (auto) Absolute Nucleated RBC 0.000 Nucleated RBC % (auto) 0.0 PT INR APTT Sodium 142 Potassium 4.0 Chloride 107 Carbon Dioxide 27 Anion Gap 12 BUN 32 H Creatinine 1.46 H Estim Creat Clear Calc 36.4 Estimated GFR 46 Random Glucose Fasting Glucose 90 Lactic Acid Lactic Acid F/U @ 2Hr 1.1 Calcium 8.9 Magnesium 2.3 Total Bilirubin Direct Bilirubin AST ALT Alkaline Phosphatase Ammonia Total Creatine Kinase Troponin I High Sens C-Reactive Protein B-Natriuretic Peptide Total Protein Albumin Lipase TSH Urine Color Urine Appearance Urine pH Ur Specific [place] Urine Protein Urine Glucose (UA) Urine Ketones Urine Blood Urine Nitrite Ur Leukocyte Esterase Urine RBC Urine WBC Ur Squamous Epith Cells Urine Bacteria Urine Mucus Salicylates Acetaminophen COVID-19 (MARIANO) COVID-19 Clin Com ECG Interpretation: Not is Expanse/muse. If not performed, need to complete. Addition of for his EKGs some issue seems because I can see lot of EKGs as you able to send me the ER Imaging Radiologist's impression: Impressions Ankle X-Ray 10/06/21 10:42 IMPRESSION: Soft tissue swelling. No acute fracture or dislocation. Heel spur. Chest X-Ray 10/06/21 10:42 IMPRESSION: CHF with a large left-sided pleural effusion. Recommend follow-up to ensure no underlying lesion. No previous. Foot X-Ray 10/06/21 10:42 IMPRESSION: Soft tissue swelling. No acute fracture or dislocation. Heel spur. Head CT 10/06/21 10:55 IMPRESSION: No acute intracranial pathology. Assessment and Plan (1) Acute on chronic diastolic CHF (congestive heart failure): Status: Acute (2) Non-rheumatic aortic stenosis: Status: Acute (3) NSTEMI (non-ST elevated myocardial infarction): Status: Acute Plan [facility] echo-01/2021-LVEF stated as normal but not quantified. Moderate to severe LVH. Mean gradient across aortic valve 33 mm Hg with a calculated valve area of 0.97 sq cm. Stated to have severe aortic stenosis. Suboptimal image quality per report. Prior [facility] discharge summary list other cardiac issues listed include chronic diastolic heart failure, paroxysmal atrial fibrillation, hypertension among others. At this time, he does look volume overloaded but the fall itself is probably not cardiac. He does have some renal insufficiency based on labs. Lactic acid slightly elevated. High sensitivity troponins are also increased which may be from demand. Underlying CAD is also possible at his age. Cardiac BNP is elevated almost 1800. Plan will be to get an echocardiogram tomorrow to reassess his cardiac function including the severe to of aortic stenosis. Otherwise, empiric diuretics watching his renal function. Eliquis may be resume after the planned thoracentesis. Will follow with you. There is no EKG in the paper chart or in expanse or MUSE and hence EKG ordered. Per ER physician's comments, normal sinus rhythm with PACs. No ischemia Procedures Date of Service Date of Service: 10/07/21
[2021-10-07] MEDS: Gabapentin 400 MG CAPSULE PO ×2 (10:17→21:38)
[2021-10-07] MEDS: Ferrous Sulfate 324 MG TABLET.DR PO (10:17)
[2021-10-07] MEDS: Metoprolol Tartrate 12.5 MG HALFTAB PO ×2 (10:17→21:38)
[2021-10-07] MEDS: 0.9 % Sodium Chloride Flush 3 ML SYRINGE IVFLUSH ×3 (10:17→21:38)
[2021-10-07] MEDS: Zinc Sulfate 220 MG CAPSULE PO (10:17)
[2021-10-07] MEDS: Cholecalciferol (Vitamin D3) 25 MCG TABLET PO (10:17)
[2021-10-07] MEDS: Ascorbic Acid 500 MG TABLET PO (10:18)
[2021-10-07] MEDS: Multivitamin TABLET 1 TAB PO (10:18)
--- NOTE | 2021-10-07 10:42 | ECG_ITS ---
Test Reason : CHF Blood Pressure : / mmHG Vent. Rate : 084 BPM Atrial Rate : 084 BPM P-R Int : 184 ms QRS Dur : 094 ms QT Int : 444 ms P-R-T Axes : 021 -59 004 degrees QTc Int : 524 ms Normal sinus rhythm Left axis deviation Inferior infarct , age undetermined Prolonged QT Abnormal ECG When compared to the previous EKG of Inferior infarct changes present Referred By: Russell Pinon Electronically Signed By:INGRID MENCHACA MD
--- NOTE | 2021-10-07 12:02 | HO.PM.IMPN ---
Subjective Subjective Date of Service: 10/07/21 Interval History: cc: fall interval history: feels well Respiratory Respiratory: Reports no additional respiratory complaints Gastrointestinal Gastrointestinal: Reports no additional gastrointestinal complaints Physical Exam Vital Signs: Vital Signs: Last Vital Signs Temp 97.8 F 10/07/21 11:35 Pulse 86 10/07/21 11:35 Resp 19 10/07/21 11:35 BP 81/50 L 10/07/21 11:35 Pulse Ox 95 10/07/21 11:35 BMI result Body Mass Index 25.4 General: AO X 2, no acute distress Resp: diminsihed left base, no accessory muscles used CVS: S1,S2,RRR, murmur, 3+ bilateral edema GI: soft, non tender, non distended Neuro: motor grossly intact, alert Psych: appropriate affect, impaired insight Objective Data Active Medications Acetaminophen (Acetaminophen 325 Mg Tablet) 650 mg PO Q6H PRN PRN Reason: Pain, Mild (Pain Scale 1-3) Ascorbic Acid (Ascorbic Acid 500 Mg Tablet) 500 mg PO DAILY [facility] Last Admin: 10/07/21 10:18 Dose: 500 mg Documented by: TANK Ferrous Sulfate (Ferrous Sulfate 324 Mg Tablet.) 324 mg PO DAILY [facility] Last Admin: 10/07/21 10:17 Dose: 324 mg Documented by: TANK Finasteride (Finasteride 5 Mg Tablet) 5 mg PO BEDTIME [facility] Last Admin: 10/06/21 20:04 Dose: 5 mg Documented by: LINDSEY Gabapentin (Gabapentin 400 Mg Capsule) 400 mg PO BID [facility] Last Admin: 10/07/21 10:17 Dose: 400 mg Documented by: TANK Heparin Sodium (Porcine) (Heparin Sodium,Porcine 5,000 Unit/Ml Vial) 5,000 unit SUBCUT Q12H [facility] Last Admin: 10/07/21 10:13 Dose: 5,000 unit Documented by: TANK Ceftriaxone Sodium 1 gm/ (Sodium Chloride) 50 mls @ 100 mls/hr IV Q24H [facility] Sodium Chloride (Ns) 500 mls @ 250 mls/hr IVCONT .Q2H [facility] Stop: 10/07/21 13:59 Metoprolol Tartrate (Metoprolol Tartrate 12.5 Mg Halftab) 12.5 mg PO BID [facility]; Protocol Last Admin: 10/07/21 10:17 Dose: 12.5 mg Documented by: TANK Multivitamins/Vitamin C (Multivitamin Tablet) 1 tab PO DAILY [facility] Last Admin: 10/07/21 10:18 Dose: 1 tab Documented by: TANK Pharmacy Consult (Consult Rx Perform Med Rec) 1 each MISCELLANE ONCE PRN PRN Reason: Consult order Pravastatin Sodium (Pravastatin Sodium 20 Mg Tablet) 20 mg PO BEDTIME [facility] Last Admin: 10/06/21 20:05 Dose: 20 mg Documented by: LINDSEY Sodium Chloride (0.9 % Sodium Chloride Flush 3 Ml Syringe) 3 ml IVFLUSH QSHIFT [facility] Last Admin: 10/07/21 10:17 Dose: 3 ml Documented by: TANK Vitamin D (Cholecalciferol (Vitamin D3) 25 Mcg Tablet) 25 mcg PO DAILY [facility] Last Admin: 10/07/21 10:17 Dose: 25 mcg Documented by: TANK Zinc Sulfate (Zinc Sulfate 220 Mg Capsule) 220 mg PO DAILY [facility] Last Admin: 10/07/21 10:17 Dose: 220 mg Documented by: TANK Labs CBC & Chem 7: 10/07/21 06:20 10/07/21 06:20 Labs: Laboratory Results - last 24 hr 10/06/21 10/06/21 10/07/21 12:18 12:48 06:20 MCV 93.9 MCH 29.6 MCHC 31.5 RDW 16.8 H Plt Count 158 L MPV 10.2 Absolute Nucleated RBC 0.000 Nucleated RBC % (auto) 0.0 Anion Gap Estim Creat Clear Calc Estimated GFR Fasting Glucose Lactic Acid F/U @ 2Hr 1.1 Calcium Magnesium Urine Color YELLOW Urine Appearance HAZY Urine pH 6.0 Ur Specific [place] 1.010 Urine Protein NEG Urine Glucose (UA) NEG Urine Ketones NEG Urine Blood TRACE Urine Nitrite NEG Ur Leukocyte Esterase 1+ H Urine RBC 5-9 H Urine WBC 10-14 H Ur Squamous Epith Cells 1+ Urine Bacteria TRACE Urine Mucus TRACE 10/07/21 06:20 MCV MCH MCHC RDW Plt Count MPV Absolute Nucleated RBC Nucleated RBC % (auto) Anion Gap 12 Estim Creat Clear Calc 36.4 Estimated GFR 46 Fasting Glucose 90 Lactic Acid F/U @ 2Hr Calcium 8.9 Magnesium 2.3 Urine Color Urine Appearance Urine pH Ur Specific [place] Urine Protein Urine Glucose (UA) Urine Ketones Urine Blood Urine Nitrite Ur Leukocyte Esterase Urine RBC Urine WBC Ur Squamous Epith Cells Urine Bacteria Urine Mucus Microbiology Microbiology Results: Microbiology 10/06/21 Unknown Urine Culture - Final Urine clean catch - Urine santos top Assessment and Plan (1) NSTEMI (non-ST elevated myocardial infarction): Status: Acute Plan 86M presented with fall, hallucinations, found to have chf, positive UA fall likely mechanical related to edema PT eval hallucinations 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) with hallucinations due to decreased sensorium (not wearing glasses) use glasses when awake avoid sedatives acute on chronic diastolic chf with severe received iv lasix, now with borderline hypotension, will hold lasix and give back 500cc, monitor closely monitor lytes cardio following echo large left pleuarl effusion likely due to chf plan for thoracentesis 10/08/21 (holding eliquis) positive UA possible uti, will treat with rocephin, follow up cultures hypotension due to diuretics, cardiac disease, not sepsis paroxysmal afib eliquis on hold for thoracentesis lopressor history of right leg DVT holding eliquis, will resume after thoracentesis CKD III stable HTN lisinopril held for hypotension BPH proscar full code reason for continued hospitalization: patient with chf, now hypotensive, high risk due to age, frailty, plan for thoracentesis tomorrow as inpatient Quality Stroke Does the patient have a stroke diagnosis?: No VTE Prior VTE?: Yes VTE Risk Level:: Medical - moderate - high VTE Device Contraindication: Treatment Not Indicated VTE Drug Contraindication: N/A - Med Ordered
[2021-10-07] MEDS: cefTRIAXone sodium 1 GM in 0.9 % Sodium Chloride 50 ML IV (12:46)
[2021-10-07] MEDS: 0.9 % Sodium Chloride 500 ML 250 ML IVCONT (12:47)
[2021-10-07] MEDS: Pravastatin Sodium 20 MG TABLET PO (21:38)
[2021-10-07] MEDS: Finasteride 5 MG TABLET PO (21:38)
[2021-10-08] VITALS (7 sets, daily range): BP systolic 95–120; BP diastolic 59–79; PULSE 86–96; RESP 15–20; TEMP 36.3–37.1; O2SAT 94–96; BMI 25.4
[2021-10-08 06:06] LABS: Hemoglobin 9.8 g/dl (14.0-18.0); Mean Corpuscular HGB Conc 31.6 g/dl (31.0-36.0); Mean Corpuscular Hemoglobin 29.9 pg (27.0-33.0); Mean Corpuscular Volume 94.5 fL (80.0-98.0); Mean Platelet Volume 9.6 fL (9.4-12.4); Platelet Count 177 X10*3/uL (160-400); Red Blood Count 3.28 X10*6/uL (4.60-5.80); Red Cell Distribution Width 16.9 % (11.0-16.0); White Blood Count 6.2 X10*3/uL (4.8-10.8)
[2021-10-08 06:31] LABS: Anion Gap 13 (12-20); Blood Urea Nitrogen 29 mg/dL (9-16); Carbon Dioxide 27 mmol/L (22-29); Chloride 106 mmol/L (96-108); Creatinine Clr Calc Pharmacy 40.9; Estimated Glomerular Filt Rate 53; Glucose Fasting 101 mg/dL (60-99); Potassium 4.7 mmol/L (3.3-5.1); Sodium 141 mmol/L (135-145)
[2021-10-08] MEDS: Metoprolol Tartrate 12.5 MG HALFTAB PO ×2 (07:17→21:49)
[2021-10-08] MEDS: Gabapentin 400 MG CAPSULE PO ×2 (07:17→21:49)
[2021-10-08] MEDS: Multivitamin TABLET 1 TAB PO (07:17)
[2021-10-08] MEDS: Cholecalciferol (Vitamin D3) 25 MCG TABLET PO (07:17)
[2021-10-08] MEDS: Ferrous Sulfate 324 MG TABLET.DR PO (07:17)
[2021-10-08] MEDS: Ascorbic Acid 500 MG TABLET PO (07:17)
[2021-10-08] MEDS: Zinc Sulfate 220 MG CAPSULE PO (07:18)
[2021-10-08] MEDS: 0.9 % Sodium Chloride Flush 3 ML SYRINGE IVFLUSH ×3 (07:18→22:00)
--- NOTE | 2021-10-08 08:00 | CA_ITS ---
Transthoracic Echocardiogram Patient (Last, First, Middle): Lion Knutson F Gender: Male Date of : 1935 Age: 86 Procedure Date: 10/08/2021 Procedure Type: Transthoracic Echocardiogram Location: [facility] [place] Height: 172.72 cm Weight: 75.75 kg BSA: 1.89 m2 Heart Rate: bpm BP: 120 / 62 mmHg Hat Presser: Referring MD: Butch Xiong MD Public Health Assistant: Jose Alejandro Georges MD Symptoms: chf, as Study Quality: Fair ECG Rhythm: Sinus Conclusions: - 1. Moderate LV systolic dysfunction with grade 3 diastolic dysfunction 2. Severe aortic stenosis with valve area 0.7 centimeters sq 3. Moderately elevated right ventricular systolic pressure 4. No gross pericardial effusion 5. Mildly dilated RV size and mildly reduced RV systolic function Findings Left Ventricle Normal left ventricular cavity size. There is moderately increased left ventricular wall thickness. The left ventricular systolic function is moderately decreased. The visually estimated ejection fraction is between 35 40%. Spectral Doppler is indicative of a restrictive filling pattern. Elevated filling pressures. E/E prime ratio is >15, consistent with elevated filling pressures. Evidence suggests grade III (severe) diastolic dysfunction. Wall Motion Rest Echo Findings The inferoseptal wall, the basal inferior, and mid inferior segments are akinetic. All other scored wall segments showed normal motion. Right Ventricle Mildly increased right ventricular cavity size. There is mildly decreased right ventricular systolic function. Atria The left atrium is severely dilated. There is no evidence of interatrial shunt. The right atrium is moderately dilated. Aortic Valve There is severe calcification of the aortic valve. There is moderate thickening of the aortic valve. There is severe aortic valve stenosis. The peak aortic gradient is 44 mmHg.The mean gradient is 27 mmHg. The aortic valve area is 0.72 cm2. Dimensionless index is 0.21 consistent with severe aortic stenosis, findings consistent with low-flow severe aortic stenosis Mitral Valve There is mild anterior and posterior mitral leaflet thickening. There is mild mitral annular calcification. There is trace mitral valve regurgitation. There is no mitral valve stenosis. Pulmonic Valve The pulmonic valve was not well visualized. Tricuspid Valve Likely normal tricuspid valve structure and function. There is mild to moderate tricuspid valve regurgitation. Mildly elevated right atrial pressure. Moderate pulmonary hypertension is present. Great Vessels All visible segments of the aorta are normal in size. The pulmonary artery was not well visualized. Venous The inferior vena cava is moderately dilated and collapses less than 50% with inspiration. Pericardium/Pleural There is no evidence of pericardial effusion. There is a bilateral pleural effusion. Prior Study Comparison No prior study available for comparison. Measurements 2D Linear Measurements IVSd: 1.39 0.6-0.9/0.6-1.0 cm LVIDd: 3.61 3.9-5.3/4.2-5.9 cm LVIDd Index: 1.91 2.4-3.2/2.2-3.1 cm/m2 LVIDs: 3.09 2.0-3.6 cm LVPWd: 1.43 0.7-1.1 cm LA Diam: 4.30 2.7-3.8/3.0-4.0 cm LAIDs Index: 2.28 1.5-2.3 cm/m2 LV Mass: 227.55 67-162/88-224 g LV Mass Index: 120.40 43-95/49-115 g/m2 LVOT Diam: 2.10 3.0+(-)1.3 cm 2D Systolic Function EF 4C: 34.60 >55% EF 2C: 38.50 >55% EF BiP: 37.50 >55% Mitral Valve MV Pk E: 0.97 MV PK A: 0.62 MV Decel Time: 110.00 E/A: 1.60 E'Lateral: 5.87 E'Medial: 2.50 E/E' Med: 38.70 E/E' Lat: 16.50 PHT: 32.00 MVA PHT: 6.88 Decel [place]: 8.79 Aortic Valve AoV Pk Freddy: 3.30 AoV Mn Freddy: 2.44 AoV VTI: 0.71 AoV Pk Grad: 44.00 Aov Mn Grad: 27.00 ISABEL Cont.VTI: 0.72 LVOT LVOT Pk Freddy: 0.66 LVOT Mn Freddy: 0.45 LVOT VTI: 0.15 LVOT Pk Grad: 2.00 LVOT Mn Grad: 1.00 LVOT Diam: 2.10 LVOT Area: 3.46 Diastolic Function MV Pk E: 0.97 MV Pk A: 0.62 E/A: 1.60 E'Medial: 2.50 E/E' Med: 38.70 E' Laterial: 5.87 E/E' Lat: 16.50 Right Ventricle TAPSE (mm): 15.00 TVS' Freddy: 8.00 Tricuspid Valve TR Pk Freddy: 3.38 TR Pk Grad: 46.00 RA Press: 8.00 RVSP: 54.00 Great Vessels Aorta Sinus of Valsalva: 3.70 2.0-3.5 cm Ao Asc: 3.10 2.1-3.4 cm Pulmonary Valve PV Pk Freddy: 0.40 Peak PV Grad: 1.00 Updated in Other Vendor System with Status of Final Jose Alejandro Georges MD electronically signed on 10/08/2021 3:47:58 PM with status of Final
--- NOTE | 2021-10-08 09:52 | HO.PM.IMPN ---
Subjective Subjective Date of Service: 10/08/21 Interval History: cc: fall interval history: no complaints Cardiovascular Cardiovascular: Reports no additional cardiovascular complaints Respiratory Respiratory: Reports no additional respiratory complaints Physical Exam Vital Signs: Vital Signs: Last Vital Signs Temp 98.6 F 10/08/21 07:16 Pulse 4 L 10/08/21 07:16 Resp 16 10/08/21 07:16 BP 108/61 10/08/21 07:16 Pulse Ox 94 10/08/21 07:16 BMI result Body Mass Index 25.4 General: AO X 2, no acute distress Resp:? diminsihed left base, no accessory muscles used CVS: S1,S2,RRR, murmur, 3+ bilateral edema GI: soft, non tender, non distended Neuro:? motor grossly intact, alert Psych: appropriate affect, impaired insight? Objective Data Active Medications Acetaminophen (Acetaminophen 325 Mg Tablet) 650 mg PO Q6H PRN PRN Reason: Pain, Mild (Pain Scale 1-3) Ascorbic Acid (Ascorbic Acid 500 Mg Tablet) 500 mg PO DAILY [facility] Last Admin: 10/08/21 07:17 Dose: 500 mg Documented by: NITHYA Ferrous Sulfate (Ferrous Sulfate 324 Mg Tablet.) 324 mg PO DAILY [facility] Last Admin: 10/08/21 07:17 Dose: 324 mg Documented by: NITHYA Finasteride (Finasteride 5 Mg Tablet) 5 mg PO BEDTIME [facility] Last Admin: 10/07/21 21:38 Dose: 5 mg Documented by: ANTEWA Gabapentin (Gabapentin 400 Mg Capsule) 400 mg PO BID [facility] Last Admin: 10/08/21 07:17 Dose: 400 mg Documented by: NITHYA Heparin Sodium (Porcine) (Heparin Sodium,Porcine 5,000 Unit/Ml Vial) 5,000 unit SUBCUT Q12H [facility] Last Admin: 10/08/21 07:26 Dose: Not Given Documented by: NITHYA Non-Admin Reason: procedure this morning Metoprolol Tartrate (Metoprolol Tartrate 12.5 Mg Halftab) 12.5 mg PO BID [facility]; Protocol Last Admin: 10/08/21 07:17 Dose: 12.5 mg Documented by: NITHYA Multivitamins/Vitamin C (Multivitamin Tablet) 1 tab PO DAILY [facility] Last Admin: 10/08/21 07:17 Dose: 1 tab Documented by: NITHYA Pharmacy Consult (Consult Rx Perform Med Rec) 1 each MISCELLANE ONCE PRN PRN Reason: Consult order Pravastatin Sodium (Pravastatin Sodium 20 Mg Tablet) 20 mg PO BEDTIME [facility] Last Admin: 10/07/21 21:38 Dose: 20 mg Documented by: TOMER Sodium Chloride (0.9 % Sodium Chloride Flush 3 Ml Syringe) 3 ml IVFLUSH QSHIFT [facility] Last Admin: 10/08/21 07:18 Dose: 3 ml Documented by: NITHYA Vitamin D (Cholecalciferol (Vitamin D3) 25 Mcg Tablet) 25 mcg PO DAILY [facility] Last Admin: 10/08/21 07:17 Dose: 25 mcg Documented by: NITHYA Zinc Sulfate (Zinc Sulfate 220 Mg Capsule) 220 mg PO DAILY [facility] Last Admin: 10/08/21 07:18 Dose: 220 mg Documented by: NITHYA Labs CBC & Chem 7: 10/08/21 05:55 10/08/21 05:55 Labs: Laboratory Results - last 24 hr 10/08/21 10/08/21 05:55 05:55 MCV 94.5 MCH 29.9 MCHC 31.6 RDW 16.9 H Plt Count 177 MPV 9.6 Absolute Nucleated RBC 0.000 Nucleated RBC % (auto) 0.0 Anion Gap 13 Estim Creat Clear Calc 40.9 Estimated GFR 53 Fasting Glucose 101 H Calcium 9.0 Microbiology Microbiology Results: Microbiology 10/06/21 10:04 Blood Culture - Preliminary Blood - Venous No growth after 24 hours. 10/06/21 10:04 Blood Culture - Preliminary Blood - Venous No growth after 24 hours. 10/06/21 Unknown Urine Culture - Final Urine clean catch - Urine santos top Assessment and Plan (1) NSTEMI (non-ST elevated myocardial infarction): Status: Acute Plan 86M presented with fall, hallucinations, found to have chf, positive UA fall likely mechanical related to edema PT eval hallucinations 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) with hallucinations due to decreased sensorium (not wearing glasses) use glasses when awake avoid sedatives acute on chronic systolicc chf with severe did not tolerate diuresis yesterday, will restart at lower dose monitor lytes cardio following follow up echo large left pleural effusion likely due to chf plan for thoracentesis today 10/08/21 (holding eliquis) urine culture negative will dc rocpehin hypotension due to diuretics, cardiac disease, not sepsis paroxysmal afib eliquis on hold for thoracentesis lopressor history of right leg DVT holding eliquis, will resume after thoracentesis CKD III stable HTN lisinopril held for hypotension BPH proscar full code reason for continued hospitalization: patient with chf, high risk due to age, frailty, plan for today, requiring iv diuresis under closemonitroing Quality Stroke Does the patient have a stroke diagnosis?: No VTE Prior VTE?: Yes VTE Risk Level:: Medical - moderate - high VTE Device Contraindication: Treatment Not Indicated VTE Drug Contraindication: N/A - Med Ordered
[2021-10-08 10:42] LABS: Troponin-I High Sensitivity 77.4 ng/L (<3.5-35.0)
--- NOTE | 2021-10-08 10:54 | PM.PNCARD ---
Subjective Subjective Date of Service: 10/08/21 Principal diagnosis: CHF, aortic stenosis Interval history: Patient overnight had some narrow complex tachycardia which appear to be SVT as well as 1 episode of nonsustained VT with wide complex tachycardia. Echocardiogram was done, full report pending. Patient denies any shortness of breath but appears to be short of breath looking at him. Overnight since yesterday at low blood pressures given fluid bolus and his Lasix was then reduced to 20 mg b.i.d.. Denies palpitations or chest pain. Denies any knowledge of prior cardiac history. Says he was told that he had a more many years ago. Review of Systems Constitutional: Reports no additional constitutional complaints Cardiovascular: Denies chest pain, Denies lightheadedness, Denies Loss of Consciousness, Denies palpitations and Reports dyspnea on exertion Respiratory: Reports no additional respiratory complaints and Reports dyspnea on exertion Gastrointestinal: Reports no additional gastrointestinal complaints Genitourinary: Reports no additional male genitourinary complaints Musculoskeletal: Reports no additional musculoskeletal complaints Skin/Breast: Reports system reviewed and no additional complaints, except as docu Reports system reviewed and no additional complaints, except as documented Psychiatric: Reports no additional psychiatric complaints Endocrine: Denies palpitations Physical Exam Vital Signs: Last Vital Signs Temp 98.6 F 10/08/21 07:16 Pulse 4 L 10/08/21 07:16 Resp 16 10/08/21 07:16 BP 108/61 10/08/21 07:16 Pulse Ox 94 10/08/21 07:16 BMI result Body Mass Index 25.4 Const General: cooperative, comfortable and in distress moderate and respiratory Nutritional Appearance: average body habitus Orientation/consciousness: patient oriented x3 Neck Neck: Yes trachea midline, Yes supple and Yes JVD Resp Effort & Inspection: normal respiratory effort Auscultation: rales on the right at the base and diminished lung sounds on the left throughout Cardio Jugular venous distension: JVD Rate: regular rate Rhythm: regular rhythm Heart sounds: S1 normal heart sound present and Murmur heart sound present systolic late and soft GI Auscultation: normal bowel sounds Skin General skin exam: no rashes or lesions noted Neuro General: patient oriented x3 and no focal motor deficits Extrem General: No clubbing, No cyanosis and Yes edema Objective Labs and Meds Result diagrams: 10/08/21 05:55 04/04/22 05:55 Lab results: Laboratory Results - last 24 hr 10/08/21 10/08/21 10/08/21 05:55 05:55 05:55 WBC 6.2 RBC 3.28 L Hgb 9.8 L Hct 31.0 L MCV 94.5 MCH 29.9 MCHC 31.6 RDW 16.9 H Plt Count 177 MPV 9.6 Absolute Nucleated RBC 0.000 Nucleated RBC % (auto) 0.0 Sodium 141 Potassium 4.7 Chloride 106 Carbon Dioxide 27 Anion Gap 13 BUN 29 H Creatinine 1.30 Estim Creat Clear Calc 40.9 Estimated GFR 53 Fasting Glucose 101 H Calcium 9.0 Troponin I High Sens 77.4 H Progress Note: A&P Assessment and plan (1) Decompensated heart failure: Status: Acute Assessment and Plan: Decompensated congestive heart failure in this elderly gentleman with underlying severe aortic stenosis, was known by prior echocardiograms at [facility]. Her patient not aware of any of these findings. Clinically as borderline hemodynamics with lower blood pressure. Will continue with low does gentle diuresis with Lasix 20 mg IV b.i.d.. Strict intake and output chart needs to be pursued in this gentleman. Will avoid any other pharmacotherapy given his low blood pressure except for metoprolol because he has fast narrow complex tachycardia as well as nonsustained VT which is not unexpected. Will review the echocardiogram, preliminary has low ejection fraction as well as severe aortic stenosis, low gradient due to reduced LV ejection fraction. Will need to discuss in future about aortic stenosis and possible consideration for aortic valve replacement. There is mention of possible baseline cognitive dysfunction. Will need to evaluate this on ongoing basis and then pursue as outpatient. I think patient will benefit with thoracocentesis of the left lung. Incentive spirometry. (2) Non-rheumatic aortic stenosis: Status: Acute Assessment and Plan: Aortic stenosis which appears to be severe. Will follow-up echocardiogram. Will need to discuss about aortic valve replacement. I do not think this requires to be done urgently. However if he does not improve or we have difficulty managing his blood pressure and or persistent heart failure may need to transfer him to [facility] for inpatient evaluation. Will follow with the patient. Thank you for allowing me to partake in his care Fall Risk Details Current Medications: Current Medications Acetaminophen (Acetaminophen 325 Mg Tablet) 650 mg PO Q6H PRN PRN Reason: Pain, Mild (Pain Scale 1-3) Ascorbic Acid (Ascorbic Acid 500 Mg Tablet) 500 mg PO DAILY [facility] Last Admin: 10/08/21 07:17 Dose: 500 mg Documented by: Ferrous Sulfate (Ferrous Sulfate 324 Mg Tablet.) 324 mg PO DAILY [facility] Last Admin: 10/08/21 07:17 Dose: 324 mg Documented by: Finasteride (Finasteride 5 Mg Tablet) 5 mg PO BEDTIME [facility] Last Admin: 10/07/21 21:38 Dose: 5 mg Documented by: Furosemide (Furosemide 20 Mg/2 Ml Vial) 20 mg IVPUSH Q12H [facility]; Protocol Gabapentin (Gabapentin 400 Mg Capsule) 400 mg PO BID [facility] Last Admin: 10/08/21 07:17 Dose: 400 mg Documented by: Heparin Sodium (Porcine) (Heparin Sodium,Porcine 5,000 Unit/Ml Vial) 5,000 unit SUBCUT Q12H [facility] Last Admin: 10/08/21 07:26 Dose: Not Given Documented by: Metoprolol Tartrate (Metoprolol Tartrate 12.5 Mg Halftab) 12.5 mg PO BID [facility]; Protocol Last Admin: 10/08/21 07:17 Dose: 12.5 mg Documented by: Multivitamins/Vitamin C (Multivitamin Tablet) 1 tab PO DAILY [facility] Last Admin: 10/08/21 07:17 Dose: 1 tab Documented by: Pharmacy Consult (Consult Rx Perform Med Rec) 1 each MISCELLANE ONCE PRN PRN Reason: Consult order Pravastatin Sodium (Pravastatin Sodium 20 Mg Tablet) 20 mg PO BEDTIME [facility] Last Admin: 10/07/21 21:38 Dose: 20 mg Documented by: Sodium Chloride (0.9 % Sodium Chloride Flush 3 Ml Syringe) 3 ml IVFLUSH QSHIFT [facility] Last Admin: 10/08/21 07:18 Dose: 3 ml Documented by: Vitamin D (Cholecalciferol (Vitamin D3) 25 Mcg Tablet) 25 mcg PO DAILY [facility] Last Admin: 10/08/21 07:17 Dose: 25 mcg Documented by: Zinc Sulfate (Zinc Sulfate 220 Mg Capsule) 220 mg PO DAILY [facility] Last Admin: 10/08/21 07:18 Dose: 220 mg Documented by: Time Spent With Patient Time: Total time spent is greater than 50% in coordination of care (as documented) at patient's floor/unit and/or counseling patient: Progress Note: Quality Stroke Does the patient have a stroke diagnosis?: No Procedures Date of Service Date of Service: 10/08/21
[2021-10-08] MEDS: Furosemide 20 MG/2 ML VIAL IVPUSH ×2 (11:26→21:49)
--- NOTE | 2021-10-08 16:19 | HO.RADPN ---
RADIOLOGY Narrative Narrative: Left thoracentesis using 4 fr catheter. 900 mL clear yellow fluid removed. Diagnostic specimen sent as ordered . CXR pending.
[2021-10-08 17:36] LABS: WBC Pleural Fluid 0.129 X10*3/uL
[2021-10-08 17:37] LABS: Eosinophils Pleural Fluid 1 %; Lymphocytes Pleural Fluid 52 %; MN% 87.6 %; Monocytes Pleural Fluid 11 %; Neutrophils Pleural Fluid 14 %; PMN% 12.4 %; RBC Pleural Fluid < 0.002 X10*3/uL
[2021-10-08 17:38] LABS: BF Shift QC OK YES; Man Diluent Bkgrd OK YES; Other Cells Plerual Fl 22 %
[2021-10-08] MEDS: Apixaban 5 MG TABLET PO (21:49)
[2021-10-08] MEDS: Pravastatin Sodium 20 MG TABLET PO (21:49)
[2021-10-08] MEDS: Finasteride 5 MG TABLET PO (21:49)
[2021-10-09] VITALS (8 sets, daily range): BP systolic 94–117; BP diastolic 48–68; PULSE 58–92; RESP 18–20; TEMP 36.4–37.3; O2SAT 93–98
[2021-10-09 06:41] LABS: Hematocrit 28.9 % (42.0-52.0); Hemoglobin 9.2 g/dl (14.0-18.0); Mean Corpuscular HGB Conc 31.8 g/dl (31.0-36.0); Mean Corpuscular Hemoglobin 29.9 pg (27.0-33.0); Mean Corpuscular Volume 93.8 fL (80.0-98.0); Mean Platelet Volume 9.4 fL (9.4-12.4); Platelet Count 165 X10*3/uL (160-400); Red Blood Count 3.08 X10*6/uL (4.60-5.80); Red Cell Distribution Width 16.7 % (11.0-16.0); White Blood Count 5.6 X10*3/uL (4.8-10.8)
[2021-10-09 06:43] LABS: Anion Gap 11 (12-20); Blood Urea Nitrogen 26 mg/dL (9-16); Calcium 8.7 mg/dL (8.4-10.2); Carbon Dioxide 31 mmol/L (22-29); Chloride 104 mmol/L (96-108); Creatinine Clr Calc Pharmacy 39.7; Estimated Glomerular Filt Rate 51; Glucose Fasting 82 mg/dL (60-99); Potassium 4.3 mmol/L (3.3-5.1); Sodium 142 mmol/L (135-145)
[2021-10-09] MEDS: Metoprolol Tartrate 12.5 MG HALFTAB PO ×2 (07:56→20:03)
[2021-10-09] MEDS: Cholecalciferol (Vitamin D3) 25 MCG TABLET PO (07:57)
[2021-10-09] MEDS: Zinc Sulfate 220 MG CAPSULE PO (07:57)
[2021-10-09] MEDS: Apixaban 5 MG TABLET PO ×2 (07:57→20:00)
[2021-10-09] MEDS: 0.9 % Sodium Chloride Flush 3 ML SYRINGE IVFLUSH ×3 (07:58→20:01)
[2021-10-09] MEDS: Ferrous Sulfate 324 MG TABLET.DR PO (07:58)
[2021-10-09] MEDS: Multivitamin TABLET 1 TAB PO (07:58)
[2021-10-09] MEDS: Ascorbic Acid 500 MG TABLET PO (07:58)
[2021-10-09] MEDS: Gabapentin 400 MG CAPSULE PO ×2 (07:58→20:00)
--- NOTE | 2021-10-09 08:28 | MHC.CM.PN ---
CM met with Patient and Daughter/Mayela ([phone]) at bedside. Patient is requesting that Mayela be allowed to receive information regarding his care/condition. CM has put a note in the front of Patient's chart, explaining the same.
--- NOTE | 2021-10-09 09:19 | HO.PM.IMPN ---
Subjective Subjective Date of Service: 10/09/21 Interval History: cc: fall, hallucinations, found to be in chf interval history:still denies sob Cardiovascular Cardiovascular: Reports no additional cardiovascular complaints Respiratory Respiratory: Reports no additional respiratory complaints Physical Exam Vital Signs: Vital Signs: Last Vital Signs Temp 98.3 F 10/09/21 07:02 Pulse 89 10/09/21 07:02 Resp 20 10/09/21 07:02 BP 104/53 L 10/09/21 07:02 Pulse Ox 95 10/09/21 07:02 BMI result Body Mass Index 25.4 General: AO X 2, no acute distress Resp:? diminsihed left base, no accessory muscles used CVS: S1,S2,RRR, murmur, 3+ bilateral edema GI: soft, non tender, non distended Neuro:? motor grossly intact, alert Psych: appropriate affect, impaired insight? Objective Data Active Medications Acetaminophen (Acetaminophen 325 Mg Tablet) 650 mg PO Q6H PRN PRN Reason: Pain, Mild (Pain Scale 1-3) Apixaban (Apixaban 5 Mg Tablet) 5 mg PO BID [facility] Last Admin: 10/09/21 07:57 Dose: 5 mg Documented by: DORENE Ascorbic Acid (Ascorbic Acid 500 Mg Tablet) 500 mg PO DAILY [facility] Last Admin: 10/09/21 07:58 Dose: 500 mg Documented by: DOREEN Ferrous Sulfate (Ferrous Sulfate 324 Mg Tablet.) 324 mg PO DAILY [facility] Last Admin: 10/09/21 07:58 Dose: 324 mg Documented by: DOREEN Finasteride (Finasteride 5 Mg Tablet) 5 mg PO BEDTIME [facility] Last Admin: 10/08/21 21:49 Dose: 5 mg Documented by: MICKI Furosemide (Furosemide 20 Mg/2 Ml Vial) 20 mg IVPUSH Q12H [facility]; Protocol Last Admin: 10/08/21 21:49 Dose: 20 mg Documented by: MICKI Gabapentin (Gabapentin 400 Mg Capsule) 400 mg PO BID [facility] Last Admin: 10/09/21 07:58 Dose: 400 mg Documented by: DOREEN Metoprolol Tartrate (Metoprolol Tartrate 12.5 Mg Halftab) 12.5 mg PO BID [facility]; Protocol Last Admin: 10/09/21 07:56 Dose: 12.5 mg Documented by: DOREEN Multivitamins/Vitamin C (Multivitamin Tablet) 1 tab PO DAILY [facility] Last Admin: 10/09/21 07:58 Dose: 1 tab Documented by: DOREEN Pharmacy Consult (Consult Rx Perform Med Rec) 1 each MISCELLANE ONCE PRN PRN Reason: Consult order Pravastatin Sodium (Pravastatin Sodium 20 Mg Tablet) 20 mg PO BEDTIME [facility] Last Admin: 10/08/21 21:49 Dose: 20 mg Documented by: MICKI Sodium Chloride (0.9 % Sodium Chloride Flush 3 Ml Syringe) 3 ml IVFLUSH QSHIFT [facility] Last Admin: 10/09/21 07:58 Dose: 3 ml Documented by: DOREEN Vitamin D (Cholecalciferol (Vitamin D3) 25 Mcg Tablet) 25 mcg PO DAILY [facility] Last Admin: 10/09/21 07:57 Dose: 25 mcg Documented by: DOREEN Zinc Sulfate (Zinc Sulfate 220 Mg Capsule) 220 mg PO DAILY [facility] Last Admin: 10/09/21 07:57 Dose: 220 mg Documented by: DOREEN Labs CBC & Chem 7: 10/09/21 06:00 10/09/21 06:00 Labs: Laboratory Results - last 24 hr 10/08/21 10/08/21 10/09/21 05:55 15:45 06:00 MCV 93.8 MCH 29.9 MCHC 31.8 RDW 16.7 H Plt Count 165 MPV 9.4 Absolute Nucleated RBC 0.000 Nucleated RBC % (auto) 0.0 Anion Gap Estim Creat Clear Calc Estimated GFR Fasting Glucose Calcium Troponin I High Sens 77.4 H Pleural WBC 0.129 Pleural RBC < 0.002 Pleural Neutrophils 14 Pleural Lymphocytes 52 Pleural Monocytes 11 Pleural Eosinophils 1 Pleural Other Cells 22 10/09/21 06:00 MCV MCH MCHC RDW Plt Count MPV Absolute Nucleated RBC Nucleated RBC % (auto) Anion Gap 11 L Estim Creat Clear Calc 39.7 Estimated GFR 51 Fasting Glucose 82 Calcium 8.7 Troponin I High Sens Pleural WBC Pleural RBC Pleural Neutrophils Pleural Lymphocytes Pleural Monocytes Pleural Eosinophils Pleural Other Cells Microbiology Microbiology Results: Microbiology 10/06/21 10:04 Blood Culture - Preliminary Blood - Venous No growth after 48 hours. 10/06/21 10:04 Blood Culture - Preliminary Blood - Venous No growth after 48 hours. 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) with hallucinations due to decreased sensorium (not wearing glasses) use glasses when awake avoid sedatives acute on chronic systolic chf with severe , moderate pulm HTN, and Right sided systolic dysfunction continue iv lasix monitor lytes cardio following large left pleural effusion likely due to chf s/p thoracentesis 10/08/21 follow up labs hypotension due to diuretics, cardiac disease, not sepsis improved, holding lisinopril paroxysmal afib eliquis restarted lopressor history of right leg DVT eliquis restarted CKD III stable HTN lisinopril held for hypotension BPH proscar full code reason for continued hospitalization: patient with chf, high risk due to age, frailty requiring iv diuresis under close monitroing Quality Stroke Does the patient have a stroke diagnosis?: No VTE Prior VTE?: Yes VTE Risk Level:: Medical - moderate - high VTE Device Contraindication: Treatment Not Indicated VTE Drug Contraindication: N/A - Med Ordered
[2021-10-09] MEDS: Furosemide 20 MG/2 ML VIAL IVPUSH (10:58)
--- NOTE | 2021-10-09 11:55 | P.PNCA_ITS ---
Subjective Subjective Date of Service: 10/09/21 <TONI Pan - Last Filed: 10/09/21 12:29> 10/09/21 <Jose Alejandro Georges MD - Last Filed: 10/09/21 13:53> Principal diagnosis: CHF, aortic stenosis <TONI Pan - Last Filed: 10/09/21 12:29> Interval history: Cardiology follow up for the above. Seen at 1015. Today he reports feeling ok. He had thoracentesis yesterday and feels that his breathing is about the same. He reports some sob when getting out of bed this am. Denies any chest pains, palpitations, dizziness. Has ongoing leg edema. Spent time going over Aortic stenosis diagnosis with him. He is oriented x2 and tells me it is May. He says he has 'Memory lapses at times. At home he lives with daughter and son in law. He manages his own personal care and is able to climb the steps going into the house. Uses a chair lift on stairs in the home. Mostly sedentary at baseline. <TONI Pan - Last Filed: 10/09/21 12:29> Review of Systems Review of Systems as above <TONI Pan - Last Filed: 10/09/21 12:29> Yes all other systems are reviewed and are negative <TONI Pan - Last Filed: 10/09/21 12:29> Physical Exam Vital Signs: Last Vital Signs Temp 99.1 F 10/09/21 11:06 Pulse 85 10/09/21 11:06 Resp 20 10/09/21 11:06 BP 110/48 L 10/09/21 11:06 Pulse Ox 98 10/09/21 11:06 BMI result Body Mass Index 25.4 <TONI Pan - Last Filed: 10/09/21 12:29> Const Other: Oriented X2 <TONI Pan - Last Filed: 10/09/21 12:29> General: cooperative, no acute distress, alert and awake <TONI Pan - Last Filed: 10/09/21 12:29> Neck Other: JVD present <TONI Pan Last Filed: 10/09/21 12:29> Neck: Yes normal visual inspection <ABUNDIO PanC - Last Filed: 10/09/21 12:29> Resp Effort & Inspection: normal respiratory effort, able to speak in complete sentences and not labored <ABUNDIO PanC - Last Filed: 10/09/21 12:29> Auscultation: clear to auscultation bilaterally, rales (each lower lobe - fine), no rhonchi and no wheezes <Annemarie Dangelo NP-C - Last Filed: 10/09/21 12:29> Cardio Jugular venous distension: JVD present <ABUNDIO PanC - Last Filed: 10/09/21 12:29> Rate: regular rate <ABUNDIO PanC - Last Filed: 10/09/21 12:29> Rhythm: regular rhythm <ABUNDIO PanC - Last Filed: 10/09/21 12:29> Heart sounds: S2 normal heart sound present and Murmur heart sound present (faint systolic) <Annemarie Dangelo NP-C - Last Filed: 10/09/21 12:29> GI Inspection: Yes normal to inspection <ABUNDIO PanC - Last Filed: 10/09/21 12:29> Extrem Other: Pitting edema from knees down to feet <Annemarie Dangelo ABUNDIOC - Last Filed: 10/09/21 12:29> Objective Labs and Meds Result diagrams: : 10/09/21 06:00 10/09/21 06:00 <Annemarie Dangelo COMMUNITY HEALTH REPRESENTATIVE-C - Last Filed: 10/09/21 12:29> Lab results: Laboratory Results - last 24 hr 10/08/21 10/09/21 10/09/21 15:45 06:00 06:00 WBC 5.6 RBC 3.08 L Hgb 9.2 L Hct 28.9 L MCV 93.8 MCH 29.9 MCHC 31.8 RDW 16.7 H Plt Count 165 MPV 9.4 Absolute Nucleated RBC 0.000 Nucleated RBC % (auto) 0.0 Sodium 142 Potassium 4.3 Chloride 104 Carbon Dioxide 31 H Anion Gap 11 L BUN 26 H Creatinine 1.34 Estim Creat Clear Calc 39.7 Estimated GFR 51 Fasting Glucose 82 Calcium 8.7 Pleural WBC 0.129 Pleural RBC < 0.002 Pleural Neutrophils 14 Pleural Lymphocytes 52 Pleural Monocytes 11 Pleural Eosinophils 1 Pleural Other Cells 22 <TONI Pan - Last Filed: 10/09/21 12:29> Imaging Radiologist's impression: Impressions Chest X-Ray 10/08/21 16:27 IMPRESSION: No pneumothorax post left thoracentesis. <TONI Pan - Last Filed: 10/09/21 12:29> Progress Note: A&P Assessment and plan (1) Decompensated heart failure: Status: Acute <TONI Pan - Last Filed: 10/09/21 12:29> Assessment and Plan: Elderly male being treated for acute on chronic diastolic and systolic HF. Echo this admit shows EF 35-40%, grade III diastolic dysfunction, severe , mod increase in RVSP, + WMA basal inferior and mid inferior akinetic. Likely has underlying CAD. He is being gently diuresed with IV lasix. Fluid balance neg 725cc this admit. Lasix dose previously reduced due to low BPs. BP this am 104/53. He did have large left pleural effusion and yesterday had thoracentesis for 900 cc. Breathing comfortable at rest with RA sat 95%. Still has JVD, fine rales in bases and bilateral pitting lower leg edema. Cr 1.34 ( was 1.58 on admit). Continue gentle diuresis. Strict I+O monitoring. Close monitoring of electrolyte and kidney function with electrolyte replacement as warranted. BNP 1788 on admit, will recheck BNP in am. <TONI Pan - Last Filed: 10/09/21 12:29> Elderly male being treated for acute on chronic diastolic and systolic HF. Echo this admit shows EF 35-40%, grade III diastolic dysfunction, severe , mod increase in RVSP, + WMA basal inferior and mid inferior akinetic. Likely has und erlying CAD. He is being gently diuresed with IV lasix. Fluid balance neg 725cc this admit. Lasix dose previously reduced due to low BPs. BP this am 104/53. He did have large left pleural effusion and yesterday had thoracentesis for 900 cc. Breathing comfortable at rest with RA sat 95%. Still has JVD, fine rales in bases and bilateral pitting lower leg edema. Cr 1.34 ( was 1.58 on admit). Continue gentle diuresis. Strict I+O monitoring. Close monitoring of electrolyte and kidney function with electrolyte replacement as warranted. BNP 1788 on admit, will recheck BNP in am. Patient seen and examined. Case discussed with Annemarie Dangelo. Patient says his symptoms of shortness of breath have improved. Diuresing well. Continue gentle diuresis with Lasix 20 mg IV b.i.d.. Strict intake and output chart needs to be pursued. Heart failure related to reduced LV systolic function as well as severe aortic stenosis suggestion of underlying coronary artery disease. Overall outcome is guarded. Continue metoprolol therapy add low-dose. Strict intake and output chart needs to be pursued. Continue to follow electrolytes and replace as needed. Patient appears to be somewhat forgetful. Not sure if he understands the gravity of the situation. <Jose Alejandro Georges MD - Last Filed: 10/09/21 13:53> (2) Non-rheumatic aortic stenosis: Status: Acute <TONI Pan - Last Filed: 10/09/21 12:29> Assessment and Plan: Echo from [facility] [place] showed normal EF, severe , mean gradiant 33 mmhg, nazario 0.97cm2. Echo this admit with reduced EF, severe , mean gradiant 27mmhg, nazario 0.7cm2. Low flow severe . Spent time with him discussing diagnosis and symptoms of severe , AVR procedures. He does have some forgetfullness which may impact his ability to be candidate for valve replacement. In addition, his echo shows WMA and troponins elevated this admit in setting of CHF. He likely has underlying CAD which would need to be further evaluated if he was to pursue AVR. Going forward, as outpt we will need to sit with patient and family to further discuss treatment options before plan is determined. At present, he is being managed medically for his HF. <TONI Pan - Last Filed: 10/09/21 12:29> Echo from [facility] [place] 01/2021 showed normal EF, severe , mean gradiant 33 mmhg, nazario 0.97cm2. Echo this admit with reduced EF, severe , mean gradiant 27mmhg, nazario 0.7cm2. Low flow severe . Spent time with him discussing diagnosis and sy mptoms of severe , AVR procedures. He does have some forgetfullness which may impact his ability to be candidate for valve replacement. In addition, his echo shows WMA and troponins elevated this admit in setting of CHF. He likely has underlying CAD which would need to be further evaluated if he was to pursue AVR. Going forward, as outpt we will need to sit with patient and family to further discuss treatment options before plan is determined. At present, he is being managed medically for his HF. Severe aortic stenosis with LV systolic dysfunction. High likelihood for underlying ischemic cardiomyopathy. He has some cognitive issues. Will need to discuss more as an outpatient with his whole family involved as to future management of his aortic stenosis and cardiomyopathy. Will follow with you <Jose Alejandro Georges MD - Last Filed: 10/09/21 13:53> (3) Afib: Status: Acute <TONI Pan - Last Filed: 10/09/21 12:29> Assessment and Plan: Notes indicate hx of afib. On treatment for rate control using low dose Metoprolol. Tele shows afib, with PVCs, rates mostly 70s. No report of palpitations. On Eliquis for anticoagulation. No bleeding issues reported. Cr 1.34 <TONI Pan - Last Filed: 10/09/21 12:29> Fall Risk Details Current Medications: Current Medications Acetaminophen (Acetaminophen 325 Mg Tablet) 650 mg PO Q6H PRN PRN Reason: Pain, Mild (Pain Scale 1-3) Apixaban (Apixaban 5 Mg Tablet) 5 mg PO BID [facility] Last Admin: 10/09/21 07:57 Dose: 5 mg Documented by: Ascorbic Acid (Ascorbic Acid 500 Mg Tablet) 500 mg PO DAILY [facility] Last Admin: 10/09/21 07:58 Dose: 500 mg Documented by: Ferrous Sulfate (Ferrous Sulfate 324 Mg Tablet.) 324 mg PO DAILY [facility] Last Admin: 10/09/21 07:58 Dose: 324 mg Documented by: Finasteride (Finasteride 5 Mg Tablet) 5 mg PO BEDTIME [facility] Last Admin: 10/08/21 21:49 Dose: 5 mg Documented by: Furosemide (Furosemide 20 Mg/2 Ml Vial) 20 mg IVPUSH Q12H [facility]; Protocol Last Admin: 10/09/21 10:58 Dose: 20 mg Documented by: Gabapentin (Gabapentin 400 Mg Capsule) 400 mg PO BID [facility] Last Admin: 10/09/21 07:58 Dose: 400 mg Documented by: Metoprolol Tartrate (Metoprolol Tartrate 12.5 Mg Halftab) 12.5 mg PO BID [facility]; Protocol Last Admin: 10/09/21 07:56 Dose: 12.5 mg Documented by: Multivitamins/Vitamin C (Multivitamin Tablet) 1 tab PO DAILY [facility] Last Admin: 10/09/21 07:58 Dose: 1 tab Documented by: Pharmacy Consult (Consult Rx Perform Med Rec) 1 each MISCELLANE ONCE PRN PRN Reason: Consult order Pravastatin Sodium (Pravastatin Sodium 20 Mg Tablet) 20 mg PO BEDTIME [facility] Last Admin: 10/08/21 21:49 Dose: 20 mg Documented by: Sodium Chloride (0.9 % Sodium Chloride Flush 3 Ml Syringe) 3 ml IVFLUSH QSHIFT [facility] Last Admin: 10/09/21 07:58 Dose: 3 ml Documented by: Vitamin D (Cholecalciferol (Vitamin D3) 25 Mcg Tablet) 25 mcg PO DAILY [facility] Last Admin: 10/09/21 07:57 Dose: 25 mcg Documented by: Zinc Sulfate (Zinc Sulfate 220 Mg Capsule) 220 mg PO DAILY [facility] Last Admin: 10/09/21 07:57 Dose: 220 mg Documented by: <TONI Pan - Last Filed: 10/09/21 12:29> Time Spent With Patient Time: Total time spent is greater than 50% in coordination of care (as documented) at patient's floor/unit and/or counseling patient: 28 <TONI Pan - Last Filed: 10/09/21 12:29> Progress Note: Quality Stroke Does the patient have a stroke diagnosis?: No <TONI Pan - Last Filed: 10/09/21 12:29> Procedures Date of Service Date of Service: 10/09/21 <TONI Pan - Last Filed: 10/09/21 12:29>
--- NOTE | 2021-10-09 11:56 | MHC.CM.PN ---
CM met with Patient at bedside to discuss PT's recommendation for STR. Patient is agreeable to a SNF search, ideally hoping for a SNF near the [facility]. CM will follow.
--- NOTE | 2021-10-09 14:34 | P.CDIC_ITS ---
CDI Concurrent Query Documentation Clarification: PHYSICIAN'S DOCUMENTATION REQUEST Date of Query: 10/09/21 1434 Patient Name: Lion Knutson Admit Date: 10/06/21 Dear Doctor, A review of the medical record indicates additional documentation may be needed. Please review below and update the documentation accordingly. Clinical Indicators: Risk Factors/Clinical Indicators/Treatments MD progress note 10/07/21: acute on chronic diastolic CHF MD progress note 10/08/21: acute on chronic systolic CHF Please provide further specificity regarding the most likely type and acuity of CHF you are evaluating, treating, or monitoring. Examples include: Type: * Systolic * Diastolic * Combined Systolic/Diastolic * Other ? please specify * Unable to determine Acuity: * Acute * Chronic * Acute on chronic * Unable to determine Use of terms such as suspected, likely, concern for, or probable (associated with a specific diagnosis that is being evaluated, monitored, or treated as if it exists) are acceptable and can be coded in the inpatient setting, when documented at the time of discharge. Thank you, Cely Fraser RN Extension: [phone] Please use your independent medical judgment in providing your response. THIS QUERY IS PART OF THE PERMANENT MEDICAL RECORD Provider Response: Other Other Diagnosis: see my note
[2021-10-09 14:58] LABS: Albumin Pleural Fluid 1.6
[2021-10-09 14:59] LABS: LDH Pleural Fluid 86; Total Protein Pleural Fluid 2.7
[2021-10-09 15:00] LABS: Glucose Pleural Fluid 89
--- NOTE | 2021-10-09 17:15 | PC.NURSE ---
daughter given update over telephone, requesting to speak with doctor, message sent with daughter's number
[2021-10-09] MEDS: Pravastatin Sodium 20 MG TABLET PO (20:00)
[2021-10-09] MEDS: Finasteride 5 MG TABLET PO (20:00)
[2021-10-10] VITALS (10 sets, daily range): BP systolic 95–110; BP diastolic 54–68; PULSE 80–98; RESP 18–20; TEMP 36.3–36.9; O2SAT 93–98
[2021-10-10 06:36] LABS: Hematocrit 31.7 % (42.0-52.0); Hemoglobin 9.9 g/dl (14.0-18.0); Mean Corpuscular HGB Conc 31.2 g/dl (31.0-36.0); Mean Corpuscular Hemoglobin 29.5 pg (27.0-33.0); Mean Corpuscular Volume 94.3 fL (80.0-98.0); Mean Platelet Volume 9.5 fL (9.4-12.4); Platelet Count 184 X10*3/uL (160-400); Red Blood Count 3.36 X10*6/uL (4.60-5.80); Red Cell Distribution Width 16.4 % (11.0-16.0); White Blood Count 5.7 X10*3/uL (4.8-10.8)
[2021-10-10 06:47] LABS: Anion Gap 12 (12-20); Blood Urea Nitrogen 25 mg/dL (9-16); Calcium 9.1 mg/dL (8.4-10.2); Carbon Dioxide 31 mmol/L (22-29); Chloride 101 mmol/L (96-108); Estimated Glomerular Filt Rate > 60; Glucose Fasting 87 mg/dL (60-99); Potassium 4.5 mmol/L (3.3-5.1); Sodium 139 mmol/L (135-145)
[2021-10-10 06:55] LABS: B Type Natriuretic Peptide 2040 pg/mL (<100)
--- NOTE | 2021-10-10 09:08 | P.PNCA_ITS ---
Subjective Subjective Date of Service: 10/10/21 <TONI Pan - Last Filed: 10/10/21 09:50> 10/10/21 <Jose Alejandro Georges MD - Last Filed: 10/10/21 12:21> Principal diagnosis: CHF, aortic stenosis <TONI Pan - Last Filed: 10/10/21 09:50> Interval history: Cardiology follow up for the above. Seen at 0820. Today he is observed resting in bed without distress. He says he feels well without concerning s ymptoms. Breathing comfortable at rest. Has not been up out of bed yet today. Slept well with HOB mildly elevated. No chest pains, palpitation, dizziness. Still has pitting leg edema. Seems appropriate at time of exam. <TONI Pan - Last Filed: 10/10/21 09:50> Review of Systems Review of Systems as above <TONI Pan Last Filed: 10/10/21 09:50> Yes all other systems are reviewed and are negative <TOIN Pan - Last Filed: 10/10/21 09:50> Physical Exam Vital Signs: Last Vital Signs Temp 98.0 F 10/10/21 07:14 Pulse 87 10/10/21 07:14 Resp 18 10/10/21 07:14 BP 100/58 L 10/10/21 07:14 Pulse Ox 94 10/10/21 07:14 BMI result Body Mass Index 25.4 <TONI Pan Last Filed: 10/10/21 09:50> Const General: cooperative, no acute distress, alert and awake <TONI Pan ast Filed: 10/10/21 09:50> Orientation/consciousness: patient oriented x3 <TONI Pan Last Filed: 10/10/21 09:50> Neck Neck: Yes JVD <TONI Pan Last Filed: 10/10/21 09:50> Resp Other: Rales noted bilateral anterior chest wall, posterior lower lobes and is dim in base of left. <TONI Pan Last Filed: 10/10/21 09:50> Effort & Inspection: normal respiratory effort, able to speak in complete sentences and not labored <Annemarie DangeloBETZYC - Last Filed: 10/10/21 09:50> Auscultation: no rhonchi and no wheezes <Annemarie DangeloBETZYC - Last Filed: 10/10/21 09:50> Cardio Jugular venous distension: JVD present <Annemarie AntolinBETZYC - Last Filed: 10/10/21 09:50> Rate: regular rate <[facility]olin [facility] - Last Filed: 10/10/21 09:50> Rhythm: regular rhythm <[facility] AntolinBETZYC - Last Filed: 10/10/21 09:50> Heart sounds: S1 normal heart sound present and S2 normal heart sound present <Annemarie DangeloBETZYC - Last Filed: 10/10/21 09:50> Neuro General: patient oriented x3 <Annemarie DangeloBETZYC - Last Filed: 10/10/21 09:50> Extrem Other: Pitting edema in thighs as well as bilateral lower legs <Annemarie AntolinBETZYC - Last Filed: 10/10/21 09:50> Objective Labs and Meds Result diagrams: : 10/10/21 06:07 10/10/21 06:07 <Annemarie DangeloBETZY-C - Last Filed: 10/10/21 09:50> Lab results: Laboratory Results - last 24 hr 10/08/21 10/10/21 10/10/21 15:45 06:07 06:07 WBC 5.7 RBC 3.36 L Hgb 9.9 L Hct 31.7 L MCV 94.3 MCH 29.5 MCHC 31.2 RDW 16.4 H Plt Count 184 MPV 9.5 Absolute Nucleated RBC 0.000 Nucleated RBC % (auto) 0.0 Sodium 139 Potassium 4.5 Chloride 101 Carbon Dioxide 31 H Anion Gap 12 BUN 25 H Creatinine 1.13 Estim Creat Clear Calc 47.0 Estimated GFR > 60 Fasting Glucose 87 Calcium 9.1 B-Natriuretic Peptide Pleural Total Protein 2.7 Pleural Albumin 1.6 Pleural LDH 86 Pleural Glucose 89 10/10/21 06:07 WBC RBC Hgb Hct MCV MCH MCHC RDW Plt Count MPV Absolute Nucleated RBC Nucleated RBC % (auto) Sodium Potassium Chloride Carbon Dioxide Anion Gap BUN Creatinine Estim Creat Clear Calc Estimated GFR Fasting Glucose Calcium B-Natriuretic Peptide 2040 H Pleural Total Protein Pleural Albumin Pleural LDH Pleural Glucose <TONI Pan - Last Filed: 10/10/21 09:50> Imaging Radiologist's impression: Impressions Thoracentesis Ultrasound 10/08/21 16:30 IMPRESSION: Ultrasound-guided left thoracentesis. <TONI Pan - Last Filed: 10/10/21 09:50> Progress Note: A&P Assessment and plan (1) Acute on chronic diastolic CHF (congestive heart failure): Status: Acute <TONI Pan - Last Filed: 10/10/21 09:50> Assessment and Plan: Elderly male being treated for acute on chronic diastolic and systolic HF. Echo this admit shows EF 35-40%, grade III diastolic dysfunction, severe , mod increase in RVSP, + WMA basal inferior and mid inferior akinetic. Likely has underlying CAD. He is being gently diuresed with IV lasix. Fluid balance neg 585cc this admit. Unclear accuracy of I+Os. Lasix dose previously reduced due to low BPs. BP this am 100/58. He did have large left pleural effusion and 4/4 had thoracentesis for 900 cc. Breathing comfortable at rest with RA sat 94%. On exam today Still has JVD, increased rales noted compared to yesterday and pitting let edema. Cr 1.13 ( was 1.58 on admit).?BNP 1788 on admit and 2039 today. Will check CXR today to eval CHF., effusion. Continue gentle diuresis. Strict I+O monitoring. Close monitoring of electrolyte and kidney function with electrolyte replacement as warranted.? <TONI Pan - Last Filed: 10/10/21 09:50> Elderly male being treated for acute on chronic diastolic and systolic HF. Echo this admit shows EF 35-40%, grade III diastolic dysfunction, severe , mod increase in RVSP, + WMA basal inferior and mid inferior akinetic. Likely has underlying CAD. He is being gently diuresed with IV lasix. Fluid balance neg 585cc this admit. Unclear accuracy of I+Os. Lasix dose previously reduced due to low BPs. BP this am 100/58. He did have large left pleural effusion and 4/4 had thoracentesis for 900 cc. Breathing comfortable at rest with RA sat 94%. On exam today Still has JVD, increased rales noted compared to yesterday and pitting let edema. Cr 1.13 ( was 1.58 on admit).?BNP 1788 on admit and 2039 today. Will check CXR today to eval CHF., effusion. Continue gentle diuresis. Strict I+O monitoring. Close monitoring of electrolyte and kidney function with electrolyte replacement as warranted.? Patient seen and examined. Case discussed with Annemarie Dangelo. Patient diuresing well. His kidney function continues to improve. His blood pressure is on the softer side but stable to will continue IV diuresis, gentle with Lasix 20 mg b.i.d.. Continue monitor renal function and electrolytes. Strict intake and output chart needs to be pursued. Trend BMP tomorrow. Will continue follow the patient. Will need eventual discussion about possibility of ischemic evaluation and aortic valve placement as outpatient. Will require cardiac catheterization. Cannot up titrate metoprolol or add angiotensin receptor silvio due to low blood pressure and severe <Jose Alejandro Georges MD - Last Filed: 10/10/21 12:21> (2) Non-rheumatic aortic stenosis: Status: Acute <TONI Pan - Last Filed: 10/10/21 09:50> Assessment and Plan: [place] [facility] [place] showed normal EF, severe , mean gradiant 33 mmhg, nazario 0.97cm2.? Echo this admit with reduced EF, severe , mean gradiant 27mmhg, nazario 0.7cm2.? Low flow severe . Yesterday spent time with him discussing diagnosis and symptoms of severe , AVR procedures.? He does have some forgetfullness which may impact his ability to be candidate for valve replacement. In addition, his echo shows WMA and troponins elevated this admit in setting of CHF. He likely has underlying CAD which would need to be further evaluated if he was to pursue AVR. Going forward, as outpt we will need to sit with patient and family to further discuss treatment options before plan is determined. At present, he is being managed medically for his HF.? <TONI Pan - Last Filed: 10/10/21 09:50> Echo from [facility] [place] 01/[place] showed normal EF, severe , mean gradiant 33 mmhg, nazario 0.97cm2.? Echo this admit with reduced EF, severe , mean gradiant 27mmhg, nazario 0.7cm2.? Low flow severe . Yesterday spent time with him discussing diagnosis and symptoms of severe , AVR procedures.? He does have some forgetfullness which may impact his ability to be candidate for valve replacement. In addition, his echo shows WMA and troponins elevated this admit in setting of CHF. He likely has underlying CAD which would need to be further evaluated if he was to pursue AVR. Going forward, as outpt we will need to sit with patient and family to further discuss treatment options before plan is determined. At present, he is being managed medically for his HF.? Plan: Will need detailed discussion with him and his family on outpatient basis for further evaluation of aortic stenosis. <Jose Alejandro Georges MD - Last Filed: 10/10/21 12:21> (3) Afib: Status: Acute <TONI Pan - Last Filed: 10/10/21 09:50> Assessment and Plan: Hx PAF, suppressed at present. On low dose Metoprolol. Tele showing SR, 80-90s. On Eliquis for anticoagulation. No bleeding issues reported. Hgb 9.9, stable <TONI Pan - Last Filed: 10/10/21 09:50> Hx PAF, suppressed at present. On low dose Metoprolol. Tele showing SR, 80-90s. On Eliquis for anticoagulation. No bleeding issues reported. Hgb 9.9, stable Agree with above <Jose Alejandro Georges MD - Last Filed: 10/10/21 12:21> Fall Risk Details Current Medications: Current Medications Acetaminophen (Acetaminophen 325 Mg Tablet) 650 mg PO Q6H PRN PRN Reason: Pain, Mild (Pain Scale 1-3) Apixaban (Apixaban 5 Mg Tablet) 5 mg PO BID [facility] Last Admin: 10/09/21 20:00 Dose: 5 mg Documented by: Ascorbic Acid (Ascorbic Acid 500 Mg Tablet) 500 mg PO DAILY [facility] Last Admin: 10/09/21 07:58 Dose: 500 mg Documented by: Ferrous Sulfate (Ferrous Sulfate 324 Mg Tablet.) 324 mg PO DAILY [facility] Last Admin: 10/09/21 07:58 Dose: 324 mg Documented by: Finasteride (Finasteride 5 Mg Tablet) 5 mg PO BEDTIME [facility] Last Admin: 10/09/21 20:00 Dose: 5 mg Documented by: Furosemide (Furosemide 20 Mg/2 Ml Vial) 20 mg IVPUSH Q12H [facility]; Protocol Last Admin: 10/09/21 23:02 Dose: Not Given Documented by: Gabapentin (Gabapentin 400 Mg Capsule) 400 mg PO BID [facility] Last Admin: 10/09/21 20:00 Dose: 400 mg Documented by: Metoprolol Tartrate (Metoprolol Tartrate 12.5 Mg Halftab) 12.5 mg PO BID [facility]; Protocol Last Admin: 10/09/21 20:03 Dose: 12.5 mg Documented by: Multivitamins/Vitamin C (Multivitamin Tablet) 1 tab PO DAILY [facility] Last Admin: 10/09/21 07:58 Dose: 1 tab Documented by: Pharmacy Consult (Consult Rx Perform Med Rec) 1 each MISCELLANE ONCE PRN PRN Reason: Consult order Pravastatin Sodium (Pravastatin Sodium 20 Mg Tablet) 20 mg PO BEDTIME [facility] Last Admin: 10/09/21 20:00 Dose: 20 mg Documented by: Sodium Chloride (0.9 % Sodium Chloride Flush 3 Ml Syringe) 3 ml IVFLUSH QSHIFT [facility] Last Admin: 10/09/21 20:01 Dose: 3 ml Documented by: Vitamin D (Cholecalciferol (Vitamin D3) 25 Mcg Tablet) 25 mcg PO DAILY [facility] Last Admin: 10/09/21 07:57 Dose: 25 mcg Documented by: Zinc Sulfate (Zinc Sulfate 220 Mg Capsule) 220 mg PO DAILY [facility] Last Admin: 10/09/21 07:57 Dose: 220 mg Documented by: <TONI Pan - Last Filed: 10/10/21 09:50> Time Spent With Patient Time: Total time spent is greater than 50% in coordination of care (as documented) at patient's floor/unit and/or counseling patient: <TONI Pan - Last Filed: 10/10/21 09:50> Progress Note: Quality Stroke Does the patient have a stroke diagnosis?: No <TONI Pan - Last Filed: 10/10/21 09:50> Procedures Date of Service Date of Service: 10/10/21 <TONI Pan - Last Filed: 10/10/21 09:50>
[2021-10-10] MEDS: Cholecalciferol (Vitamin D3) 25 MCG TABLET PO (10:48)
[2021-10-10] MEDS: Ascorbic Acid 500 MG TABLET PO (10:48)
[2021-10-10] MEDS: Zinc Sulfate 220 MG CAPSULE PO (10:48)
[2021-10-10] MEDS: Multivitamin TABLET 1 TAB PO (10:48)
[2021-10-10] MEDS: Ferrous Sulfate 324 MG TABLET.DR PO (10:48)
[2021-10-10] MEDS: 0.9 % Sodium Chloride Flush 3 ML SYRINGE IVFLUSH ×3 (10:49→21:32)
[2021-10-10] MEDS: Gabapentin 400 MG CAPSULE PO ×2 (10:49→21:32)
[2021-10-10] MEDS: Apixaban 5 MG TABLET PO ×2 (10:49→21:31)
[2021-10-10 11:21] LABS: COVID-19 Test Negative (Negative); IDNOW Serial# 16C4AD1C
--- NOTE | 2021-10-10 11:43 | MHC.CLN ---
F/U PT WITH INCREASED NUTRITION RISK R/T PRESSURE INJURIES DIET ADVANCED TO CARDIAC 1200ML FLUID RESTRICTION-APPROPRIATE PT RECEIVING ENSURE TID TO PROVIDES 1050KCALS, 60G PROTEIN, 540ML TOTAL WATER FROM SUPPLEMENT FOR FLUID RESTRICTION (180CC PER CARTON) CONTINUE TO MONITOR PO INTAKE CLOSELY
--- NOTE | 2021-10-10 14:04 | P.PNIM_ITS ---
Subjective Subjective Date of Service: 10/10/21 Interval History: the patient was seen and evaluated this morning Laying in bed, feels better but still having dyspnea on exertion Reporting abdominal pain from gallbladder issues Denies any fever, chills or shortness of breath No reported other overnight events. Systemic review: No fever, chills or weakness No chest pain, palpitation No shortness of breath but having dyspnea on exertion reporting abdominal pain with no associated nausea or vomiting No urinary symptoms No any rash or wounds Physical Exam Vital Signs: Vital Signs: Last Vital Signs Temp 97.3 F 10/10/21 11:12 Pulse 90 10/10/21 11:12 Resp 18 10/10/21 11:12 BP 100/56 L 10/10/21 11:12 Pulse Ox 98 10/10/21 11:12 BMI result Body Mass Index 25.4 Const: Other: Constitutional : Alert, oriented, not in distress Neck : Normal inspection, Supple Cardiovascular : RRR, S1 S2, no lower extremity edema Respiratory : Good bilateral air entry, no crackles, fine expiratory scattered wheezes or rhonchi Gastrointestinal: soft, lax, Normal bowel sounds, Non tender Skin : Warm, Dry Neurological : Alert & oriented x3, No focal deficit Objective Data Active Medications Acetaminophen (Acetaminophen 325 Mg Tablet) 650 mg PO Q6H PRN PRN Reason: Pain, Mild (Pain Scale 1-3) Apixaban (Apixaban 5 Mg Tablet) 5 mg PO BID [facility] Last Admin: 10/10/21 10:49 Dose: 5 mg Documented by: COY Ascorbic Acid (Ascorbic Acid 500 Mg Tablet) 500 mg PO DAILY [facility] Last Admin: 10/10/21 10:48 Dose: 500 mg Documented by: COY Ferrous Sulfate (Ferrous Sulfate 324 Mg Tablet.) 324 mg PO DAILY [facility] Last Admin: 10/10/21 10:48 Dose: 324 mg Documented by: COY Finasteride (Finasteride 5 Mg Tablet) 5 mg PO BEDTIME [facility] Last Admin: 10/09/21 20:00 Dose: 5 mg Documented by: GAVIN Furosemide (Furosemide 20 Mg/2 Ml Vial) 20 mg IVPUSH Q12H [facility]; Protocol Last Admin: 10/10/21 12:21 Dose: Not Given Documented by: COY Non-Admin Reason: Physician Held Med Gabapentin (Gabapentin 400 Mg Capsule) 400 mg PO BID [facility] Last Admin: 10/10/21 10:49 Dose: 400 mg Documented by: COY Metoprolol Tartrate (Metoprolol Tartrate 12.5 Mg Halftab) 12.5 mg PO BID [facility]; Protocol Last Admin: 10/10/21 12:21 Dose: Not Given Documented by: COY Non-Admin Reason: Physician Held Med Multivitamins/Vitamin C (Multivitamin Tablet) 1 tab PO DAILY [facility] Last Admin: 10/10/21 10:48 Dose: 1 tab Documented by: COY Pharmacy Consult (Consult Rx Perform Med Rec) 1 each MISCELLANE ONCE PRN PRN Reason: Consult order Pravastatin Sodium (Pravastatin Sodium 20 Mg Tablet) 20 mg PO BEDTIME [facility] Last Admin: 10/09/21 20:00 Dose: 20 mg Documented by: GAVIN Sodium Chloride (0.9 % Sodium Chloride Flush 3 Ml Syringe) 3 ml IVFLUSH QSHIFT [facility] Last Admin: 10/10/21 10:49 Dose: 3 ml Documented by: COY Vitamin D (Cholecalciferol (Vitamin D3) 25 Mcg Tablet) 25 mcg PO DAILY [facility] Last Admin: 10/10/21 10:48 Dose: 25 mcg Documented by: COY Zinc Sulfate (Zinc Sulfate 220 Mg Capsule) 220 mg PO DAILY [facility] Last Admin: 10/10/21 10:48 Dose: 220 mg Documented by: COY Labs CBC & Chem 7: 10/10/21 06:07 10/10/21 06:07 Labs: Laboratory Results - last 24 hr 10/08/21 10/10/21 10/10/21 15:45 06:07 06:07 MCV 94.3 MCH 29.5 MCHC 31.2 RDW 16.4 H Plt Count 184 MPV 9.5 Absolute Nucleated RBC 0.000 Nucleated RBC % (auto) 0.0 Anion Gap 12 Estim Creat Clear Calc 47.0 Estimated GFR > 60 Fasting Glucose 87 Calcium 9.1 B-Natriuretic Peptide Pleural Total Protein 2.7 Pleural Albumin 1.6 Pleural LDH 86 Pleural Glucose 89 COVID-19 (MARIANO) COVID-19 Clin Com 10/10/21 10/10/21 06:07 10:58 MCV MCH MCHC RDW Plt Count MPV Absolute Nucleated RBC Nucleated RBC % (auto) Anion Gap Estim Creat Clear Calc Estimated GFR Fasting Glucose Calcium B-Natriuretic Peptide 2040 H Pleural Total Protein Pleural Albumin Pleural LDH Pleural Glucose COVID-19 (MARIANO) Negative COVID-19 Clin Com See Note Assessment and Plan (1) Decompensated heart failure: Status: Acute (2) Acute on chronic diastolic CHF (congestive heart failure): Status: Acute (3) Afib: Status: Acute (4) Pleural effusion, left: Status: Acute Plan 86M presented with fall, hallucinations, found to have chf, positive UA fall likely mechanical related to edema PT appreciated, dispo plan to SNF once Ready hallucinations improving 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) with hallucinations due to decreased sensorium (not wearing glasses) use glasses when awake avoid sedatives Depression Reported low mood and thinking about being Get care team evaluation acute on chronic systolic chf with severe , moderate pulm HTN, and Right sided systolic dysfunction Echo showed EF of 30% BNP elevated at 2000 continue iv lasix monitor lytes cardio following large left pleural effusion due to chf s/p thoracentesis 10/08/21, transudate Repeated CXR showing no significant change and the effusion size hypotension due to diuretics, cardiac disease, not sepsis improved, holding lisinopril paroxysmal afib eliquis restarted lopressor history of right leg DVT eliquis restarted CKD III stable HTN lisinopril held for hypotension BPH proscar full code reason for continued hospitalization: patient with chf, high risk due to age, frailty requiring iv diuresis under close monitroing Quality Stroke Does the patient have a stroke diagnosis?: No VTE Prior VTE?: Yes VTE Risk Level:: Medical - moderate - high VTE Device Contraindication: Treatment Not Indicated VTE Drug Contraindication: N/A - Med Ordered
[2021-10-10] MEDS: Furosemide 20 MG/2 ML VIAL IVPUSH (14:55)
[2021-10-10] MEDS: Furosemide 20 MG/2 ML VIAL 40 MG IVPUSH (16:03)
[2021-10-10] MEDS: Finasteride 5 MG TABLET PO (21:31)
[2021-10-10] MEDS: Pravastatin Sodium 20 MG TABLET PO (21:32)
[2021-10-10] MEDS: Metoprolol Tartrate 12.5 MG HALFTAB PO (21:33)
[2021-10-11] VITALS (11 sets, daily range): BP systolic 82–128; BP diastolic 55–72; PULSE 87–99; RESP 14–20; TEMP 36–36.9; O2SAT 94–97
[2021-10-11] MEDS: Furosemide 20 MG/2 ML VIAL 40 MG IVPUSH ×2 (03:46→16:19)
[2021-10-11 07:01] LABS: Anion Gap 13 (12-20); Blood Urea Nitrogen 28 mg/dL (9-16); Calcium 9.4 mg/dL (8.4-10.2); Carbon Dioxide 30 mmol/L (22-29); Chloride 100 mmol/L (96-108); Creatinine Clr Calc Pharmacy 41.2; Estimated Glomerular Filt Rate 53; Glucose Random 96 mg/dL (60-115); Potassium 4.4 mmol/L (3.3-5.1); Sodium 139 mmol/L (135-145)
[2021-10-11 07:08] LABS: B Type Natriuretic Peptide 2145 pg/mL (<100)
[2021-10-11] MEDS: Metoprolol Tartrate 12.5 MG HALFTAB PO (10:36)
[2021-10-11] MEDS: Zinc Sulfate 220 MG CAPSULE PO (10:36)
[2021-10-11] MEDS: Cholecalciferol (Vitamin D3) 25 MCG TABLET PO (10:36)
[2021-10-11] MEDS: 0.9 % Sodium Chloride Flush 3 ML SYRINGE IVFLUSH ×3 (10:37→19:45)
[2021-10-11] MEDS: Ascorbic Acid 500 MG TABLET PO (10:37)
[2021-10-11] MEDS: Apixaban 5 MG TABLET PO ×2 (10:37→19:43)
[2021-10-11] MEDS: Multivitamin TABLET 1 TAB PO (10:37)
[2021-10-11] MEDS: Gabapentin 400 MG CAPSULE PO ×2 (10:37→19:43)
[2021-10-11] MEDS: Ferrous Sulfate 324 MG TABLET.DR PO (10:37)
--- NOTE | 2021-10-11 11:01 | P.PNCA_ITS ---
Subjective Subjective Date of Service: 10/11/21 <TONI Pan - Last Filed: 10/11/21 11:23> 10/11/21 <Jose Alejandro Georges MD - Last Filed: 10/11/21 12:28> Principal diagnosis: CHF, aortic stenosis <TONI Pan - Last Filed: 10/11/21 11:23> Interval history: Cardiology follow up for CHF. Seen at 0915. Today he reports he is feeling good. His breathing is unlabored at rest. No cough, slept with HOB elevated slightly. No chest pains, palpitation, dizziness. Was up in chair yesterday and reports steadiness on feet with use of walker. Legs still have edema. <TONI Pan - Last Filed: 10/11/21 11:23> Review of Systems Review of Systems as above <TONI Pan - Last Filed: 10/11/21 11:23> Yes all other systems are reviewed and are negative <TONI Pan - Last Filed: 10/11/21 11:23> Physical Exam Vital Signs: Last Vital Signs Temp 97.5 F 10/11/21 08:00 Pulse 89 10/11/21 10:40 Resp 20 10/11/21 08:00 BP 102/64 10/11/21 10:40 Pulse Ox 96 10/11/21 08:40 BMI result Body Mass Index 25.4 <TONI Pan - Last Filed: 10/11/21 11:23> Const Other: Oriented to questions this am. <TONI Pan - Last Filed: 10/11/21 11:23> General: cooperative, no acute distress, alert and awake <TONI Pan - Last Filed: 10/11/21 11:23> Neck Neck: Yes normal visual inspection and Yes no JVD <TONI Pan - Last Filed: 10/11/21 11:23> Resp Effort & Inspection: normal respiratory effort, able to speak in complete sentences and not labored <TONI Pan - Last Filed: 10/11/21 11:23> Auscultation: clear to auscultation bilaterally, rales (Noted in each lower lobe), no rhonchi and no wheezes <Annemarie Valenzuela TONI Dangelo - Last Filed: 10/11/21 11:23> Cardio Rate: regular rate <Annemarie DangeloTONI - Last Filed: 10/11/21 11:23> Rhythm: regular rhythm <Annemarie Valenzuela ABUNDIO DangeloC - Last Filed: 10/11/21 11:23> Heart sounds: S1 normal heart sound present, S2 normal heart sound present and Murmur heart sound present (faint systolic) <Annemarie Valenzuela ABUNDIO DangeloC - Last Filed: 10/11/21 11:23> GI Inspection: Yes normal to inspection <Annemarie Valenzuela TONI Dangelo - Last Filed: 10/11/21 11:23> Extrem Other: Pitting edema noted into upper thighs, some improvement in lower leg edema. <Annemarie Bianca TONI Dangelo - Last Filed: 10/11/21 11:23> Objective Labs and Meds Result diagrams: : 10/10/21 06:07 10/11/21 06:03 <Annemarie Valenzuela TONI Dangelo - Last Filed: 10/11/21 11:23> Lab results: Laboratory Results - last 24 hr 10/10/21 10/11/21 10/11/21 10:58 06:03 06:03 Sodium 139 Potassium 4.4 Chloride 100 Carbon Dioxide 30 H Anion Gap 13 BUN 28 H Creatinine 1.29 Estim Creat Clear Calc 41.2 Estimated GFR 53 Random Glucose 96 Calcium 9.4 B-Natriuretic Peptide 2145 H COVID-19 ([facility]) Negative COVID-19 Clin Com See Note <Annemarie Bianca TONI Dangelo - Last Filed: 10/11/21 11:23> Imaging Radiologist's impression: Impressions Chest X-Ray 10/10/21 09:34 IMPRESSION: Persistent moderate left pleural effusion without significant change. <TONI Pan - Last Filed: 10/11/21 11:23> Progress Note: A&P Assessment and plan (1) Acute on chronic diastolic CHF (congestive heart failure): Status: Acute <TONI Pan - Last Filed: 10/11/21 11:23> Assessment and Plan: Elderly male being treated for acute on chronic diastolic and systolic HF. Echo this admit shows EF 35-40%, grade III diastolic dysfunction, severe , mod increase in RVSP, + WMA basal inferior and mid inferior akinetic. Likely has underlying CAD. He is being gently diuresed with IV lasix. Dose increased to 40mg IV BID by hospitalist yesterday. CXR yest had shows persistent moderate left pleural effusion. Sats 95% on RA. Fluid balance neg 625cc this admit. Unclear accuracy of I+Os. A [place] catheter is being used. Breathing comfortable at rest without reports of PND, orthopnea. On exam today JVD looks improved but still has some rales in lower lung cisneros and pitting leg edema, up into thighs. Cr 1.29 today, was 1.13 yesterday. ( was 1.58 on admit).?BNP 1788 on admit and 2145 today. Needs further diuresis. BP low, 98/68, however asymptomatic and has been stable. Continue IV Lasix. Continue Strict I+O monitoring. Close monitoring of electrolyte and kidney function with electrolyte replacement as warranted.?BMP, BNP in am. Pt agreeable to this plan. We will follow. <Annemraie Dangelo NP-[facility] - Last Filed: 10/11/21 11:23> Elderly male being treated for acute on chronic diastolic and systolic HF. Echo this admit shows EF 35-40%, grade III diastolic dysfunction, severe , mod increase in RVSP, + WMA basal inferior and mid inferior akinetic. Likely has underlying CAD. He is being gently diuresed with IV lasix. Dose increased to 40mg IV BID by hospitalist yesterday. CXR yest had shows persistent moderate left pleural effusion. Sats 95% on RA. Fluid balance neg 625cc this admit. Unclear accuracy of I+Os. A [place] catheter is being used. Breathing comfortable at rest without reports of PND, orthopnea. On exam today JVD looks improved but still has some rales in lower lung cisneros and pitting leg edema, up into thighs. Cr 1.29 today, was 1.13 yesterday. ( was 1.58 on admit).?BNP 1788 on admit and 2145 today. Needs further diuresis. BP low, 98/68, however asymptomatic and has been stable. Continue IV Lasix. Continue Strict I+O monitoring. Close monitoring of electrolyte and kidney function with electrolyte replacement as warranted.?BMP, BNP in am. Pt agreeable to this plan. We will follow. Patient seen and examined. Case discussed with Annemarie Dangelo. Patient diuresing gently. AST was increased to 40 mg b.i.d.. Despite that the BNP today is increased. Blood pressure on the low side. Asymptomatic. Still appears to have leg edema. Continue to diurese. Continue metoprolol therapy. Overall prognosis is guarded. Continue monitor renal function as well as elect rolytes on a daily basis. If continues to worsen may need transfer for cardiac catheterization. <Jose Alejandro Georges MD - Last Filed: 10/11/21 12:28> (2) Non-rheumatic aortic stenosis: Status: Acute <TONI Pan - Last Filed: 10/11/21 11:23> Assessment and Plan: Severe low flow confirmed on echo this admit. Management of CHF as above. <TONI Pan - Last Filed: 10/11/21 11:23> (3) Pleural effusion, left: Status: Acute <TONI Pan - Last Filed: 10/11/21 11:23> Assessment and Plan: Left thoracentesis done on 10/08/21 for 900cc clear yellow fluid. CXR yesterday showing persistent moderate left pleural effusion. Still being diuresed with IV Lasix. <TONI Pan - Last Filed: 10/11/21 11:23> (4) Afib: Status: Acute <TONI Pan - Last Filed: 10/11/21 11:23> Assessment and Plan: Hx PAF. No AF noted this admit. Tele showing stable SR, PACs, rates 70- 90s. Continue Metoprolol for rate control. Continue Eliquis for anticoagulation. <TONI Pan - Last Filed: 10/11/21 11:23> Fall Risk Details Current Medications: Current Medications Acetaminophen (Acetaminophen 325 Mg Tablet) 650 mg PO Q6H PRN PRN Reason: Pain, Mild (Pain Scale 1-3) Apixaban (Apixaban 5 Mg Tablet) 5 mg PO BID [facility] Last Admin: 10/11/21 10:37 Dose: 5 mg Documented by: Ascorbic Acid (Ascorbic Acid 500 Mg Tablet) 500 mg PO DAILY [facility] Last Admin: 10/11/21 10:37 Dose: 500 mg Documented by: Ferrous Sulfate (Ferrous Sulfate 324 Mg Tablet.) 324 mg PO DAILY [facility] Last Admin: 10/11/21 10:37 Dose: 324 mg Documented by: Finasteride (Finasteride 5 Mg Tablet) 5 mg PO BEDTIME [facility] Last Admin: 10/10/21 21:31 Dose: 5 mg Documented by: Furosemide (Furosemide 20 Mg/2 Ml Vial) 40 mg IVPUSH Q12H [facility]; Protocol Last Admin: 10/11/21 03:46 Dose: 40 mg Documented by: Gabapentin (Gabapentin 400 Mg Capsule) 400 mg PO BID [facility] Last Admin: 10/11/21 10:37 Dose: 400 mg Documented by: Metoprolol Tartrate (Metoprolol Tartrate 12.5 Mg Halftab) 12.5 mg PO BID [facility]; Protocol Last Admin: 10/11/21 10:36 Dose: 12.5 mg Documented by: Multivitamins/Vitamin C (Multivitamin Tablet) 1 tab PO DAILY [facility] Last Admin: 10/11/21 10:37 Dose: 1 tab Documented by: Pharmacy Consult (Consult Rx Perform Med Rec) 1 each MISCELLANE ONCE PRN PRN Reason: Consult order Pravastatin Sodium (Pravastatin Sodium 20 Mg Tablet) 20 mg PO BEDTIME [facility] Last Admin: 10/10/21 21:32 Dose: 20 mg Documented by: Sodium Chloride (0.9 % Sodium Chloride Flush 3 Ml Syringe) 3 ml IVFLUSH QSHIFT [facility] Last Admin: 10/11/21 10:37 Dose: 3 ml Documented by: Vitamin D (Cholecalciferol (Vitamin D3) 25 Mcg Tablet) 25 mcg PO DAILY [facility] Last Admin: 10/11/21 10:36 Dose: 25 mcg Documented by: Zinc Sulfate (Zinc Sulfate 220 Mg Capsule) 220 mg PO DAILY [facility] Last Admin: 10/11/21 10:36 Dose: 220 mg Documented by: <TONI Pan - Last Filed: 10/11/21 11:23> Time Spent With Patient Time: Total time spent is greater than 50% in coordination of care (as documented) at patient's floor/unit and/or counseling patient: <TONI Pan - Last Filed: 10/11/21 11:23> Progress Note: Quality Stroke Does the patient have a stroke diagnosis?: No <TONI Pan - Last Filed: 10/11/21 11:23> Procedures Date of Service Date of Service: 10/11/21 <TONI Pan - Last Filed: 10/11/21 11:23>
--- NOTE | 2021-10-11 11:36 | P.PNIM_ITS ---
Subjective Subjective Date of Service: 10/11/21 Interval History: the patient was seen and evaluated this morning Laying in bed, feels better but still having edema in his extremities BNP of 2200 No reported other overnight events. Systemic review: No fever, chills or weakness No chest pain, palpitation No shortness of breath but having dyspnea on exertion no abdominal pain No urinary symptoms No any rash or wounds Physical Exam Vital Signs: Vital Signs: Last Vital Signs Temp 97.5 F 10/11/21 08:00 Pulse 89 10/11/21 10:40 Resp 20 10/11/21 08:00 BP 102/64 10/11/21 10:40 Pulse Ox 96 10/11/21 08:40 BMI result Body Mass Index 25.4 Const: Other: Constitutional : Alert, oriented, not in distress Neck : Normal inspection, Supple Cardiovascular : RRR, S1 S2, trace bilateral lower extremity edema Respiratory : Good bilateral air entry, no crackles, fine expiratory scattered wheezes or rhonchi Gastrointestinal: soft, lax, Normal bowel sounds, Non tender Skin : Warm, Dry Neurological : Alert & oriented x3, No focal deficit Objective Data Active Medications Acetaminophen (Acetaminophen 325 Mg Tablet) 650 mg PO Q6H PRN PRN Reason: Pain, Mild (Pain Scale 1-3) Apixaban (Apixaban 5 Mg Tablet) 5 mg PO BID [facility] Last Admin: 10/11/21 10:37 Dose: 5 mg Documented by: TANK Ascorbic Acid (Ascorbic Acid 500 Mg Tablet) 500 mg PO DAILY [facility] Last Admin: 10/11/21 10:37 Dose: 500 mg Documented by: TANK Ferrous Sulfate (Ferrous Sulfate 324 Mg Tablet.) 324 mg PO DAILY [facility] Last Admin: 10/11/21 10:37 Dose: 324 mg Documented by: TANK Finasteride (Finasteride 5 Mg Tablet) 5 mg PO BEDTIME [facility] Last Admin: 10/10/21 21:31 Dose: 5 mg Documented by: GAVIN Furosemide (Furosemide 20 Mg/2 Ml Vial) 40 mg IVPUSH Q12H [facility]; Protocol Last Admin: 10/11/21 03:46 Dose: 40 mg Documented by: GAVIN Gabapentin (Gabapentin 400 Mg Capsule) 400 mg PO BID [facility] Last Admin: 10/11/21 10:37 Dose: 400 mg Documented by: TANK Metoprolol Tartrate (Metoprolol Tartrate 12.5 Mg Halftab) 12.5 mg PO BID [facility]; Protocol Last Admin: 10/11/21 10:36 Dose: 12.5 mg Documented by: TANK Multivitamins/Vitamin C (Multivitamin Tablet) 1 tab PO DAILY [facility] Last Admin: 10/11/21 10:37 Dose: 1 tab Documented by: TANK Pharmacy Consult (Consult Rx Perform Med Rec) 1 each MISCELLANE ONCE PRN PRN Reason: Consult order Pravastatin Sodium (Pravastatin Sodium 20 Mg Tablet) 20 mg PO BEDTIME [facility] Last Admin: 10/10/21 21:32 Dose: 20 mg Documented by: GAVIN Sodium Chloride (0.9 % Sodium Chloride Flush 3 Ml Syringe) 3 ml IVFLUSH QSHIFT [facility] Last Admin: 10/11/21 10:37 Dose: 3 ml Documented by: TANK Vitamin D (Cholecalciferol (Vitamin D3) 25 Mcg Tablet) 25 mcg PO DAILY [facility] Last Admin: 10/11/21 10:36 Dose: 25 mcg Documented by: TANK Zinc Sulfate (Zinc Sulfate 220 Mg Capsule) 220 mg PO DAILY [facility] Last Admin: 10/11/21 10:36 Dose: 220 mg Documented by: TANK Labs CBC & Chem 7: 10/10/21 06:07 10/11/21 06:03 Labs: Laboratory Results - last 24 hr 10/11/21 10/11/21 06:03 06:03 Anion Gap 13 Estim Creat Clear Calc 41.2 Estimated GFR 53 Random Glucose 96 Calcium 9.4 B-Natriuretic Peptide 2145 H Assessment and Plan (1) Pleural effusion, left: Status: Acute (2) Decompensated heart failure: Status: Acute Plan 86M presented with fall, hallucinations, found to have chf, positive UA acute on chronic systolic chf with severe , moderate pulm HTN, and Right sided systolic dysfunction Echo showed EF of 30% BNP elevated at 2200 cardiology recommend to continue iv lasix monitor lytes cardio input appreciated fall likely mechanical related to edema PT appreciated, dispo plan to SNF once Ready hallucinations improved 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) with hallucinations due to decreased sensorium (not wearing glasses) use glasses when awake avoid sedatives Depression Reported low mood and thinking about being Get care team evaluation large left pleural effusion due to chf s/p thoracentesis 10/08/21, transudate Repeated CXR showing no significant change and the effusion size hypotension due to diuretics, cardiac disease, not sepsis improved, holding lisinopril paroxysmal afib eliquis restarted lopressor history of right leg DVT eliquis restarted CKD III stable HTN lisinopril held for hypotension BPH proscar full code reason for continued hospitalization: patient with chf, high risk due to age, frailty requiring iv diuresis under close monitroing Quality Stroke Does the patient have a stroke diagnosis?: No VTE Prior VTE?: Yes VTE Risk Level:: Medical - moderate - high VTE Device Contraindication: Treatment Not Indicated VTE Drug Contraindication: N/A - Med Ordered
--- NOTE | 2021-10-11 19:35 | PC.NURSE ---
Pt blood pressure low at 11am vital check. MD notified and ordered trendelenberg position and IVP Glucagon. Pt placed in trendelenberg and blood pressure recheck was 82/56 manual. Pt given glucagon and blood pressure improved to 92/54. For afternoon IVP lasix blood pressure check before administration was 102/. MD ordered to give IVP lasix and HOLD bedtime dose PO metoprolol. Next shift RN notified.
[2021-10-11] MEDS: Pravastatin Sodium 20 MG TABLET PO (19:43)
[2021-10-11] MEDS: Finasteride 5 MG TABLET PO (19:43)
[2021-10-12 03:57] VITALS: BP 102/69; PULSE 83; RESP 20; TEMP 36.7; O2SAT 95
[2021-10-12 07:24] LABS: B Type Natriuretic Peptide 1391 pg/mL (<100)
[2021-10-12 07:25] LABS: Anion Gap 12 (12-20); Blood Urea Nitrogen 29 mg/dL (9-16); Carbon Dioxide 34 mmol/L (22-29); Chloride 97 mmol/L (96-108); Creatinine Clr Calc Pharmacy 40.6; Estimated Glomerular Filt Rate 52; Glucose Random 85 mg/dL (60-115); Potassium 4.7 mmol/L (3.3-5.1); Sodium 138 mmol/L (135-145)
[2021-10-12 07:26] VITALS: BP 103/67; PULSE 89; RESP 20; TEMP 36.7; O2SAT 93
[2021-10-12] MEDS: Ascorbic Acid 500 MG TABLET PO (08:37)
[2021-10-12] MEDS: Apixaban 5 MG TABLET PO (08:37)
[2021-10-12] MEDS: Cholecalciferol (Vitamin D3) 25 MCG TABLET PO (08:37)
[2021-10-12] MEDS: Ferrous Sulfate 324 MG TABLET.DR PO (08:37)
[2021-10-12] MEDS: Gabapentin 400 MG CAPSULE PO (08:37)
[2021-10-12] MEDS: Zinc Sulfate 220 MG CAPSULE PO (08:37)
[2021-10-12] MEDS: Multivitamin TABLET 1 TAB PO (08:37)
[2021-10-12] MEDS: 0.9 % Sodium Chloride Flush 3 ML SYRINGE IVFLUSH (08:38)
[2021-10-12 09:19] VITALS: BP 103/67; PULSE 89; O2SAT 93
--- NOTE | 2021-10-12 10:33 | PM.PNCARD ---
Subjective Subjective Date of Service: 10/12/21 <TONI Pan - Last Filed: 10/12/21 10:46> 10/12/21 <Jose Alejandro Georges MD - Last Filed: 10/12/21 11:24> Principal diagnosis: CHF, aortic stenosis <TONI Pan - Last Filed: 10/12/21 10:46> Interval history: Cardiology follow up for the above. Seen at 0820. Today he is observed sitting up in recliner eating breakfast. He reports feeling well with no concerning symptoms. States he was steady on feet when getting up. No sob, chest discomfort, palpitation, dizziness. Leg edema much improved. <TONI Pan - Last Filed: 10/12/21 10:46> Review of Systems Review of Systems as above <TONI Pan - Last Filed: 10/12/21 10:46> Yes all other systems are reviewed and are negative <TONI Pan - Last Filed: 10/12/21 10:46> Physical Exam Vital Signs: Last Vital Signs Temp 98.0 F 10/12/21 07:26 Pulse 89 10/12/21 09:19 Resp 20 10/12/21 07:26 BP 103/67 10/12/21 09:19 Pulse Ox 93 10/12/21 09:19 BMI result Body Mass Index 25.4 <TONI Pan - Last Filed: 10/12/21 10:46> Const General: cooperative, no acute distress, alert and awake <TONI Pan - Last Filed: 10/12/21 10:46> Orientation/consciousness: patient oriented x3 <TONI Pan - Last Filed: 10/12/21 10:46> Neck Neck: Yes normal visual inspection and Yes no JVD (none noted with him sitting upright) <TONI Pan Last Filed: 10/12/21 10:46> Resp Effort & Inspection: normal respiratory effort, able to speak in complete sentences and not labored <TONI Pan Last Filed: 10/12/21 10:46> Auscultation: clear to auscultation bilaterally (Dim in each lower lobe, overall clearer than on prior days), no rales, no rhonchi and no wheezes <TONI Pan - Last Filed: 10/12/21 10:46> Cardio Rate: regular rate <Annemarie Bianca ABUNDIO DangeloC - Last Filed: 10/12/21 10:46> Rhythm: regular rhythm <Annemarie Bianca ABUNDIO DangeloC - Last Filed: 10/12/21 10:46> Heart sounds: S1 normal heart sound present and S2 normal heart sound present <Annemarie Bianca ABUNDIO DangeloC - Last Filed: 10/12/21 10:46> Peripheral pulses: Peripheral pulses 2+ throughout <ABUNDIO PanC - Last Filed: 10/12/21 10:46> GI Inspection: Yes normal to inspection <ABUNDIO PanC - Last Filed: 10/12/21 10:46> Neuro General: patient oriented x3 <ABUNDIO PanC - Last Filed: 10/12/21 10:46> Extrem General: Yes normal to inspection <Annemarie Bianca ABUNDIO DangeloC - Last Filed: 10/12/21 10:46> Right upper extremity: edema (mild in lower legs, thigh edema much improved) <ABUNDIO PanC - Last Filed: 10/12/21 10:46> Objective Labs and Meds Result diagrams: : 10/10/21 06:07 10/12/21 06:18 <TONI Pan - Last Filed: 10/12/21 10:46> Lab results: Laboratory Results - last 24 hr 10/12/21 10/12/21 06:18 06:18 Sodium 138 Potassium 4.7 Chloride 97 Carbon Dioxide 34 H Anion Gap 12 BUN 29 H Creatinine 1.31 Estim Creat Clear Calc 40.6 Estimated GFR 52 Random Glucose 85 Calcium 9.0 B-Natriuretic Peptide 1391 H <ABUNDIO PanC - Last Filed: 10/12/21 10:46> Progress Note: A&P Assessment and plan (1) Acute on chronic diastolic CHF (congestive heart failure): Status: Acute <TONI Pan - Last Filed: 10/12/21 10:46> Assessment and Plan: Elderly male being treated for acute on chronic diastolic and systolic HF. Echo this admit shows EF 35-40%, grade III diastolic dysfunction, severe , mod increase in RVSP, + WMA basal inferior and mid inferior akinetic. Likely has underlying CAD. He was diuresed with IV lasix and fluid balance Neg 2545 cc since admit. Unclear accuracy of his I+Os. CXR 4/6 showed persistent moderate left pleural effusion. He denies any shortness of breath, no cough. Sat 93-95% on room air. Lungs dim in bases with less rales than what was noted on prior exams, Leg edema much improved. Cr 1.31 today, was 1.29 yesterday. ( was 1.58 on admit).?BNP 1391 today, was 2145 yesterday. BP low, 103/67, however asymptomatic and has been stable. At this time, will stop IV lasix and change to 80mg po daily. He can be discharged from a cardiology perspective and we will arrange for outpt cardiology follow up. Hospitalist informed. <Annemarie Dangelo, BETZY-C - Last Filed: 10/12/21 10:46> Elderly male being treated for acute on chronic diastolic and systolic HF. Echo this admit shows EF 35-40%, grade III diastolic dysfunction, severe , mod increase in RVSP, + WMA basal inferior and mid inferior akinetic. Likely has underlying CAD. He was diuresed with IV lasix and fluid balance Neg 2545 cc since admit. Unclear accuracy of his I+Os. CXR 4/6 showed persistent moderate left pleural effusion. He denies any shortness of breath, no cough. Sat 93-95% on room air. Lungs dim in bases with less rales than what was noted on prior exams, Leg edema much improved. Cr 1.31 today, was 1.29 yesterday. ( was 1.58 on admit).?BNP 1391 today, was 2145 yesterday. BP low, 103/67, however asymptomatic and has been stable. At this time, will stop IV lasix and change to 80mg po daily. He can be discharged from a cardiology perspective and we will arrange for outpt cardiology follow up. Hospitalist informed. Plan Patient seen and examined. Case discussed with Annemarie Dangelo. Patient doing well from heart failure perspective. Switch to oral diuretics with Lasix 80 mg daily. Heart failure education to be provided. Continue low-dose metoprolol therapy. Cannot add other medications due to low blood pressure. Outpatient follow-up in 7-10 days will be set up. Will need to discuss about further therapy for aortic stenosis as well as cardiomyopathy. Discussed with the patient about the same, he shows understanding. Planned to be [facility]. will sign of the case <Jose Alejandro Georges MD - Last Filed: 10/12/21 11:24> (2) Non-rheumatic aortic stenosis: Status: Acute <TONI Pan - Last Filed: 10/12/21 10:46> Assessment and Plan: Severe low flow confirmed on echo this admit. Management of CHF as above. We will further discuss eval/ treatment of the as outpt. <TONI Pan - Last Filed: 10/12/21 10:46> (3) Afib: Status: Acute <TONI Pan - Last Filed: 10/12/21 10:46> Assessment and Plan: Hx PAF. No AF noted this admit. Tele showing stable SR, PACs, rates 80-90s. Continue Metoprolol for rate control. Continue Eliquis for anticoagulation. <TONI Pan - Last Filed: 10/12/21 10:46> (4) Pleural effusion, left: Status: Acute <TONI Pan - Last Filed: 10/12/21 10:46> Assessment and Plan: Left thoracentesis done on 10/08/21 for 900cc clear yellow fluid. CXR 10/10 showing persistent moderate left pleural effusion. He was further diuresed and reports breathing is comfortable. Not requiring O2 supplement. Being discharged on a higher dose Lasix. <TONI Pan - Last Filed: 10/12/21 10:46> Fall Risk Details Current Medications: Current Medications Acetaminophen (Acetaminophen 325 Mg Tablet) 650 mg PO Q6H PRN PRN Reason: Pain, Mild (Pain Scale 1-3) Apixaban (Apixaban 5 Mg Tablet) 5 mg PO BID [facility] Last Admin: 10/12/21 08:37 Dose: 5 mg Documented by: Ascorbic Acid (Ascorbic Acid 500 Mg Tablet) 500 mg PO DAILY [facility] Last Admin: 10/12/21 08:37 Dose: 500 mg Documented by: Ferrous Sulfate (Ferrous Sulfate 324 Mg Tablet.) 324 mg PO DAILY [facility] Last Admin: 10/12/21 08:37 Dose: 324 mg Documented by: Finasteride (Finasteride 5 Mg Tablet) 5 mg PO BEDTIME [facility] Last Admin: 10/11/21 19:43 Dose: 5 mg Documented by: Furosemide (Furosemide 20 Mg/2 Ml Vial) 40 mg IVPUSH Q12H [facility]; Protocol Last Admin: 10/12/21 04:18 Dose: Not Given Documented by: Gabapentin (Gabapentin 400 Mg Capsule) 400 mg PO BID [facility] Last Admin: 10/12/21 08:37 Dose: 400 mg Documented by: Metoprolol Tartrate (Metoprolol Tartrate 12.5 Mg Halftab) 12.5 mg PO BID [facility]; Protocol Last Admin: 10/11/21 19:46 Dose: Not Given Documented by: Multivitamins/Vitamin C (Multivitamin Tablet) 1 tab PO DAILY [facility] Last Admin: 10/12/21 08:37 Dose: 1 tab Documented by: Pharmacy Consult (Consult Rx Perform Med Rec) 1 each MISCELLANE ONCE PRN PRN Reason: Consult order Pravastatin Sodium (Pravastatin Sodium 20 Mg Tablet) 20 mg PO BEDTIME [facility] Last Admin: 10/11/21 19:43 Dose: 20 mg Documented by: Sodium Chloride (0.9 % Sodium Chloride Flush 3 Ml Syringe) 3 ml IVFLUSH QSHIFT [facility] Last Admin: 10/12/21 08:38 Dose: 3 ml Documented by: Vitamin D (Cholecalciferol (Vitamin D3) 25 Mcg Tablet) 25 mcg PO DAILY [facility] Last Admin: 10/12/21 08:37 Dose: 25 mcg Documented by: Zinc Sulfate (Zinc Sulfate 220 Mg Capsule) 220 mg PO DAILY [facility] Last Admin: 10/12/21 08:37 Dose: 220 mg Documented by: <TONI Pan - Last Filed: 10/12/21 10:46> Time Spent With Patient Time: Total time spent is greater than 50% in coordination of care (as documented) at patient's floor/unit and/or counseling patient: <TONI Pan - Last Filed: 10/12/21 10:46> Progress Note: Quality Stroke Does the patient have a stroke diagnosis?: No <TONI Pan - Last Filed: 10/12/21 10:46> Procedures Date of Service Date of Service: 10/12/21 <TONI Pan - Last Filed: 10/12/21 10:46>
--- NOTE | 2021-10-12 11:02 | MHC.CLN ---
F/U PT WITH INCREASED NUTRITION RISK R/T PRESSURE INJURIES po intake 75-100% DIET rx: CARDIAC 1200ML FLUID RESTRICTION-APPROPRIATE PT RECEIVING ENSURE TID PROVIDES 1050KCALS, 60G PROTEIN, 540ML TOTAL WATER FROM SUPPLEMENT FOR FLUID RESTRICTION (180ML PER CARTON) CONTINUE TO MONITOR PO INTAKE AND WOUND HEALING CLOSELY
--- NOTE | 2021-10-12 11:37 | P.DS_ITS ---
DS: Providers Provider Date of Service: 10/12/21 Date of admission: 10/06/21 12:35 Primary care physician: STEPHY Lim Consults: 10/06/21 12:31 Consult to Cardiology Routine Consulting Provider: Russell Pinon Reason for consultation: chf, as DS: Diagnosis Discharge Diagnosis (1) Acute on chronic diastolic CHF (congestive heart failure): Status: Acute (2) Non-rheumatic aortic stenosis: Status: Acute (3) Afib: Status: Acute (4) Pleural effusion, left: Status: Acute (5) Confusion: Status: Acute DS: Summary Hospital Course Hospital Course: Admission note HPI Hospital course The patient was admitted after sustaining a fall at home. Believed to be mechanical related to having edema. Evaluated by Physical therapy who recommended short-term rehab. He was treated mainly for CHF exacerbation with associated severe aortic stenosis as an echo showed EF of 30%. Cardiology recommend evaluated the patient and recommended treatment with IV Lasix with fair response over the course of hospital stay as he was weaned off the oxygen and edema improved significantly. He was found to have large left-sided pleural effusion due to heart failure which he had thoracentesis with removal of 1 L of transudative fluid. Repeated CXR did not show much of improvement in the effusion itself. Cardiology recommended to continue medical treatment with Lasix. Confusion was thought to be secondary to mild to moderate dementia and decreased sensorium from not wearing his glasses. Mentation improved significantly during the hospital stay and will need further evaluation follow-up by primary care after discharge. his blood pressure was noted to be solved and lisinopril was held. Will need close monitoring of blood pressure over the next week before starting lisinopril. Start Lasix 80 mg daily Keep lisinopril on held and recheck blood pressure for the next week before restarting it by MD facility To follow up with Cardiology as outpatient expected length of stay at the facility less than 30 days Time Spent with Patient Time attestation: Total time spent providing and/or coordinating discharge services: Discharge coordination time: Greater than 30 minutes Quality: Safe Use of Opioids Does Pt have an Active Cancer Diagnosis on the Problem List?: No Quality: Stroke Does the patient have a stroke diagnosis?: No Physical Exam Vital Signs: Vital Signs: Last Vital Signs Temp 98.0 F 10/12/21 07:26 Pulse 89 10/12/21 09:19 Resp 20 04/08/22 07:26 BP 103/67 10/12/21 09:19 Pulse Ox 93 10/12/21 09:19 BMI result Body Mass Index 25.4 Const: Other: Constitutional : Alert, Interactive, not in distress Neck : Normal inspection, Supple Cardiovascular : RRR, S1 S2, trace bilateral lower extremity edema Respiratory : fair bilateral air entry but decreased over the left lower lobe, no crackles, no wheezes or rhonchi Gastrointestinal: soft, lax, Normal bowel sounds, Non tender Skin : Warm, Dry Neurological : Alert & oriented x3, No focal deficit DS: Data Data Completed and Pending Labs on day of discharge: Laboratory Results - last 24 hr 10/12/21 10/12/21 06:18 06:18 Sodium 138 Potassium 4.7 Chloride 97 Carbon Dioxide 34 H Anion Gap 12 BUN 29 H Creatinine 1.31 Estim Creat Clear Calc 40.6 Estimated GFR 52 Random Glucose 85 Calcium 9.0 B-Natriuretic Peptide 1391 H Discharge Plan Discharge Patient Disposition: [facility] Discharge Diagnosis: Acute CHF exacerbation left-sided pleural effusion Referrals: Neil Saab PA [Primary Care Provider] - 1 Week Discharge Medications: New furosemide 80 mg tablet 80 mg PO DAILY Qty: 30 0RF Continued cholecalciferol (vitamin D3) [Vitamin D3] 25 mcg (1,000 unit) Tablet 25 mcg PO DAILY 0RF zinc 50 mg Tablet 50 mg PO DAILY 0RF multivitamin Tablet 1 tab PO DAILY 0RF ascorbic acid (vitamin C) 500 mg Tablet 500 mg PO DAILY 0RF acetaminophen 325 mg Tablet 650 mg PO Q4H PRN (Reason: Pain (Scale Score 1-3)) 0RF ferrous sulfate 325 mg (65 mg iron) Tablet 325 mg PO DAILY 0RF pravastatin 20 mg Tablet 20 mg PO BEDTIME 0RF finasteride 5 mg Tablet 5 mg PO BEDTIME 0RF gabapentin 400 mg Capsule 400 mg PO BID 0RF metoprolol tartrate 25 mg Tablet 12.5 mg PO BID 0RF Eliquis 2.5 mg tablet 1 tab PO BID 0RF Held lisinopril 20 mg Tablet 20 mg PO DAILY 0RF Hold Instructions: monitor blood pressure before restarting lisinopril by facility MD. Discontinued furosemide 20 mg Tablet 20 mg PO DAILY 0RF Discharge Orders: Discharge Order (Routine); Ordered 10/12/21 Ordered By: Kylee Pantoja Diet: advance to usual diet Activity on Discharge: As tolerated Stand Alone Forms: Patient Portal Discharge page Care Plan Goals: Read below Health Concerns: Read below Plan of Treatment: Read below Assessment: you were admitted to the hospital for evaluation of difficulty breathing and increased weakness. Found to be in acute heart failure exacerbation evaluated by Cariology team and treated with IV Lasix with good response over the course of hospital stay as you were weaned off the oxygen. You were fine to have left-sided pleural effusion which was drained out showing no sign of infection. Noticed to have low blood pressure readings. Lisinopril was held during the hospital stay. Start Lasix 80 mg daily Keep lisinopril on held and recheck blood pressure for the next week before restarting it by MD facility To follow up with Cardiology as outpatient
[2021-10-12 11:41] VITALS: BP 118/56; PULSE 93; RESP 20; TEMP 36.9; O2SAT 98
--- NOTE | 2021-10-12 12:12 | MHC.CM.PN ---
Patient has been medically cleared for dc to SNF/STR today. Patient will dc to the first choice SNF- [facility] today at 4PM, via [facility].IMM addressed with Daughter/Mayela at [phone](original to be mailed out certified letter to Mayela and a copy has been placed on the chart).
== END 2021-10-12 17:00 | disposition skilled nursing facility (03) | DRG 280 ==
LOC: HO.ED 10:50 → HO.EDOVER 12:39 → HO.IMC 17:10
PROVIDERS: Nurse Practitioner Family; Radiology Diagnostic Radiology; Admitting Provider Internal Medicine; Emergency Provider Emergency Medicine; PCP Physician Assistant Medical; Visit Provider Student in an Organized Health Care Education/Training Program
DX: I13.0 Hypertensive heart and chronic kidney disease with heart failure and stage 1 through stage 4 chronic kidney disease, or unspecified chronic kidney disease (principal); I21.4 Non-ST elevation (NSTEMI) myocardial infarction; I50.23 Acute on chronic systolic (congestive) heart failure; E87.2 Acidosis; I47.1 Supraventricular tachycardia; L97.429 Non-pressure chronic ulcer of left heel and midfoot with unspecified severity; R44.2 Other hallucinations; N18.30 Chronic kidney disease, stage 3 unspecified; I48.0 Paroxysmal atrial fibrillation; I35.0 Nonrheumatic aortic (valve) stenosis; I95.9 Hypotension, unspecified; G30.9 Alzheimer's disease, unspecified; F32.A Depression, unspecified; N40.0 Benign prostatic hyperplasia without lower urinary tract symptoms; F02.80 Dementia in other diseases classified elsewhere, unspecified severity, without behavioral disturbance, psychotic disturbance, mood disturbance, and anxiety; Z86.718 Personal history of other venous thrombosis and embolism; Z20.822 Contact with and (suspected) exposure to COVID-19; Z87.891 Personal history of nicotine dependence; Z79.01 Long term (current) use of anticoagulants; Z79.899 Other long term (current) drug therapy
CPT/HCPCS: 32555; 36415; 70450; 71045; 73610; 73630; 80048; 80076; 80143; 80179; 81001; 82042; 82140; 82550; 82945; 83605; 83615; 83690; 83735; 83880; 84157; 84443; 84484; 85025; 85027; 85610; 85730; 86140; 87040; 87086; 87635; 89051; 93005; 93306; 96365; 96375; 97110; 97116; 97162; 97530; 99285; J0696; J1610; J1940

== ENCOUNTER 2021-10-15 06:54 | Outpatient (REF) | payer MEDICARE, SELFPAY ==
[2021-10-15 06:57] LABS: MANUAL DIFF FLAG NO
[2021-10-15 07:06] LABS: Basophils Absolute Auto 0.1 X10*3/uL (0.0-0.2); Basophils Percent Auto 0.7 % (0-2); Eosinophils Absolute Auto 0.2 X10*3/uL (0.0-0.4); Eosinophils Percent Auto 2.8 % (0-4); Hematocrit 32.5 % (42.0-52.0); Hemoglobin 10.1 g/dl (14.0-18.0); Imm Gran Abs Auto 0.02 X10*3/uL (0.00-0.03); Imm Gran Pct Auto 0.3 % (0.0-0.4); Lymphocytes Absolute Auto 1.1 X10*3/uL (1.2-4.9); Lymphocytes Percent Auto 14.8 % (20-40); Mean Corpuscular HGB Conc 31.1 g/dl (31.0-36.0); Mean Corpuscular Volume 96.4 fL (80.0-98.0); Mean Platelet Volume 9.4 fL (9.4-12.4); Monocytes Absolute Auto 0.7 X10*3/uL (0.1-1.2); Monocytes Percent Auto 9.7 % (2-11); Neutrophils Absolute Auto 5.1 x10*3/uL (2.0-8.3); Neutrophils Percent Auto 71.7 % (45-73); Platelet Count 232 X10*3/uL (160-400); Red Blood Count 3.37 X10*6/uL (4.60-5.80); Red Cell Distribution Width 15.9 % (11.0-16.0); White Blood Count 7.1 X10*3/uL (4.8-10.8)
[2021-10-15 07:24] LABS: Alanine Aminotransferase 46 U/L (0-40); Albumin Level 3.4 g/dL (3.5-5.0); Alkaline Phosphatase 93 U/L (39-117); Anion Gap 13 (12-20); Aspartate Amino Transferase 40 U/L (5-37); Bilirubin Total 0.4 mg/dL (0.0-1.0); Blood Urea Nitrogen 31 mg/dL (9-16); Calcium 8.7 mg/dL (8.4-10.2); Carbon Dioxide 29 mmol/L (22-29); Chloride 103 mmol/L (96-108); Estimated Glomerular Filt Rate 54; Glucose Random 85 mg/dL (60-115); Potassium 4.2 mmol/L (3.3-5.1); Sodium 141 mmol/L (135-145); Total Protein 6.2 g/dL (6.5-8.0)
== END 2021-10-15 06:55 | disposition home or self-care (01) ==
LOC: HO.MMNH2L 06:54
PROVIDERS: Visit Provider Family Medicine
DX: I50.9 Heart failure, unspecified (principal)
CPT/HCPCS: 36415; 80053; 85025

== ENCOUNTER 2021-10-22 | Outpatient (REF) | payer MEDICARE, SELFPAY ==
[2021-10-22 06:57] LABS: MANUAL DIFF FLAG NO
[2021-10-22 07:04] LABS: Basophils Absolute Auto 0.1 X10*3/uL (0.0-0.2); Basophils Percent Auto 0.8 % (0-2); Eosinophils Absolute Auto 0.2 X10*3/uL (0.0-0.4); Eosinophils Percent Auto 3.4 % (0-4); Hematocrit 33.4 % (42.0-52.0); Hemoglobin 10.5 g/dl (14.0-18.0); Imm Gran Abs Auto 0.02 X10*3/uL (0.00-0.03); Imm Gran Pct Auto 0.3 % (0.0-0.4); Lymphocytes Absolute Auto 1.3 X10*3/uL (1.2-4.9); Lymphocytes Percent Auto 21.5 % (20-40); Mean Corpuscular HGB Conc 31.4 g/dl (31.0-36.0); Mean Corpuscular Hemoglobin 29.6 pg (27.0-33.0); Mean Corpuscular Volume 94.1 fL (80.0-98.0); Mean Platelet Volume 9.7 fL (9.4-12.4); Monocytes Absolute Auto 0.6 X10*3/uL (0.1-1.2); Neutrophils Absolute Auto 3.8 x10*3/uL (2.0-8.3); Platelet Count 240 X10*3/uL (160-400); Red Blood Count 3.55 X10*6/uL (4.60-5.80); Red Cell Distribution Width 15.2 % (11.0-16.0); White Blood Count 5.9 X10*3/uL (4.8-10.8)
[2021-10-22 07:34] LABS: Anion Gap 16 (12-20); Blood Urea Nitrogen 40 mg/dL (9-16); Calcium 9.3 mg/dL (8.4-10.2); Carbon Dioxide 28 mmol/L (22-29); Chloride 100 mmol/L (96-108); Estimated Glomerular Filt Rate 50; Glucose Random 79 mg/dL (60-115); Potassium 4.1 mmol/L (3.3-5.1); Sodium 140 mmol/L (135-145)
== END 2021-10-22 00:01 | disposition home or self-care (01) ==
LOC: HO.MMNH2L
PROVIDERS: Visit Provider Family Medicine
DX: I50.9 Heart failure, unspecified (principal)
CPT/HCPCS: 36415; 80048; 85025